=== PATIENT | female | born 1985 | race Caucasian/White ===

== ENCOUNTER → 2018-12-23 | Outpatient (CLI) | payer OTHER | END | disposition home or self-care (01) | LOC: LABWHC1 11:01 | PROVIDERS: ATTEND Nurse Practitioner Family | DX: Z01.818 Encounter for other preprocedural examination (principal) | CPT/HCPCS: 36415; 93005 ==

== ENCOUNTER → 2019-11-16 | Outpatient (CLI) | payer OTHER | END | disposition home or self-care (01) | LOC: EKGWHC1 16:14 | PROVIDERS: ATTEND Nurse Practitioner Family | DX: Z53.9 Procedure and treatment not carried out, unspecified reason (principal) | CPT/HCPCS: 93005 ==

== ENCOUNTER → 2020-06-13 | Outpatient (CLI) | payer OTHER | END | disposition home or self-care (01) | LOC: LABWHC1 14:57 | PROVIDERS: ATTEND Nurse Practitioner Family | DX: Z01.812 Encounter for preprocedural laboratory examination (principal); R00.1 Bradycardia, unspecified | CPT/HCPCS: 36415; 93005 ==

== ENCOUNTER 2020-09-15 11:40 | Emergency (ER) | payer OTHER ==
[2020-09-15 12:23] VITALS: BP 115/76; PULSE 68; RESP 16; TEMP 97.9
[2020-09-15 13:23] LABS: Appearance,Urine Clear (Clear); Basophils # (A) 0.1 k/uL (0-0.2); Basophils % (A) 1 %; Bilirubin,Urine Negative (Negative); Blood,Urine Negative (Negative); Color,Urine Yellow; Eosinophils # (A) 0.3 k/uL (0-0.7); Eosinophils % (A) 3 %; Glucose,Urine (UA) Negative (Negative); HCT 45.2 % (34.0-46.0); HGB 14.6 gm/dL (11.4-16.0); Ketones,Urine Negative (Negative); Leukocyte Esterase,Urine Negative (Negative); Lymphocytes # (A) 2.2 k/uL (1.0-4.8); Lymphocytes % (A) 24 %; MCH 31.7 pg (25.0-35.0); MCHC 32.4 g/dL (31.0-37.0); MCV 97.8 fL (80.0-100.0); Mean Platelet Volume 10.7; Monocytes # (A) 0.4 k/uL (0-1.0); Monocytes % (A) 4 %; Neutrophils # (A) 6.2 k/uL (1.3-7.7); Neutrophils % (A) 67 %; Nitrite,Urine Negative (Negative); PH, Urine 5.5 (5.0-8.0); Platelet Count 180 k/uL (150-450); Protein,Urine Negative (Negative); RBC 4.62 m/uL (3.80-5.40); RDW 13.4 % (11.5-15.5); Urobilinogen,Urine <2.0 mg/dL (<2.0); WBC 9.3 k/uL (3.8-10.6)
[2020-09-15 13:31] LABS: Albumin 4.2 g/dL (3.5-5.0); Calcium 9.6 mg/dL (8.4-10.2); Potassium 4.7 mmol/L (3.5-5.1); Total Bilirubin 0.2 mg/dL (0.2-1.3); Total Protein 6.9 g/dL (6.3-8.2)
--- NOTE | 2020-09-15 13:31 | ED ---
Extremity Problem HPI - General Chief complaint: Extremity Problem,Nontraumatic Stated complaint: Lower Extremity Swelling Time Seen by Provider: 09/15/20 12:47 Source: patient Mode of arrival: wheelchair Limitations: no limitations - History of Present Illness Initial comments: 35-year-old female presents to the emergency department with a chief complaint of both legs. Patient reports there is been no trauma that she has noticed gradual swelling in bilateral lower extremities with intermittent sharp shooting pains. She denies any chest pain or shortness of breath. She denies any trauma to the legs. Denies any history of DVT or PE. Not currently on control. She does have history of fibromyalgia and states the pain sometimes resembles her fibromyalgia pain, however she denies any previous swelling. No recent hospitalizations or chemotherapy. - Related Data Home Medications Medication Instructions Recorded Confirmed Pnv,Calcium 72/Iron/Folic Acid 1 tab PO DAILY 03/24/15 03/24/15 [Pnv Plus Multivit Tab] Allergies Allergy/AdvReac Type Severity Reaction Status Date / Time amoxicillin trihydrate Allergy Nausea & Verified 09/15/20 12:23 [From Augmentin] Vomiting fexofenadine HCl Allergy Nausea & Verified 09/15/20 12:23 [From Aniyah] Vomiting potassium clavulanate Allergy Nausea & Verified 09/15/20 12:23 [From Augmentin] Vomiting Review of Systems ROS Statement: Those systems with pertinent positive or pertinent negative responses have been documented in the HPI. ROS Other: All systems not noted in ROS Statement are negative. Past Medical History Additional Past Medical History / Comment(s): migraines, anxiety, hypoglycemia. Obstetric history: First was a vaginal delivery at 38 weeks, 8#2oz. T his is her second and she only started care with me last week. I did get heart tones at 174 last week but yesterday when she presented for US there was not a heart beat. History of Any Multi-Drug Resistant Organisms: None Reported Past Surgical History: Orthopedic Surgery Additional Past Surgical History / Comment(s): right knee x2 in 2012, right ankle in 2004, lap appy 2013 Past Anesthesia/Blood Transfusion Reactions: No Reported Reaction Past Psychological History: Anxiety Smoking Status: Current every day smoker Past Alcohol Use History: None Reported Past Drug Use History: None Reported - Past Family History Father Family Medical History: No Reported History General Exam Limitations: no limitations General appearance: alert, in no apparent distress, obese Head exam: Present: atraumatic, normocephalic Eye exam: Present: normal appearance, PERRL, EOMI Pupils: Present: normal accommodation ENT exam: Present: normal exam, mucous membranes moist Neck exam: Present: normal inspection, full ROM. Absent: tenderness Respiratory exam: Present: normal lung sounds bilaterally. Absent: respiratory distress, wheezes, rales, rhonchi, stridor, chest wall tenderness Cardiovascular Exam: Present: regular rate, normal rhythm, normal heart sounds. Absent: systolic murmur Extremities exam: Present: normal inspection, full ROM, normal capillary refill. Absent: tenderness, pedal edema, joint swelling Back exam: Present: normal inspection, full ROM. Absent: tenderness, CVA tenderness (R), CVA tenderness (L) Neurological exam: Present: alert, oriented X3 Psychiatric exam: Present: normal affect, normal mood Skin exam: Present: warm, dry, intact, normal color Course Vital Signs 09/15/20 12:19 Temperature 97.9 F Pulse Rate 68 Respiratory 16 Rate Blood Pressure 115/76 O2 Sat by Pulse 98 Oximetry Medical Decision Making - Medical Decision Making 35-year-old female presents to the emergency department with a chief complaint of leg swelling. On Physical examination, no pitting edema. However, she does have bilateral calf tenderness. She is otherwise neurovascularly intact. Bilateral lower extremity ultrasound is unremarkable. Laboratory work was obtained to rule out potentially renal cause of her symptoms. No acute findings. Patient will be discharged and outpatient follow-up with primary care. Advised to keep her legs elevated. Return parameters were thoroughly discussed the patient was attending agreeable. Case discussed with Dr. Villagran. - Lab Data Result diagrams: 09/15/20 13:09 09/15/20 13:09 Lab Results 09/15/20 09/15/20 09/15/20 Range/Units 13:09 13:09 13:09 WBC 9.3 (3.8-10.6) k/uL RBC 4.62 (3.80-5.40) m/uL Hgb 14.6 (11.4-16.0) gm/dL Hct 45.2 (34.0-46.0) % MCV 97.8 (80.0-100.0) fL MCH 31.7 (25.0-35.0) pg MCHC 32.4 (31.0-37.0) g/dL RDW 13.4 (11.5-15.5) % Plt Count 180 (150-450) k/uL MPV 10.7 Neutrophils % 67 % Lymphocytes % 24 % Monocytes % 4 % Eosinophils % 3 % Basophils % 1 % Neutrophils # 6.2 (1.3-7.7) k/uL Lymphocytes # 2.2 (1.0-4.8) k/uL Monocytes # 0.4 (0-1.0) k/uL Eosinophils # 0.3 (0-0.7) k/uL Basophils # 0.1 (0-0.2) k/uL Sodium 140 (137-145) mmol/L Potassium 4.7 (3.5-5.1) mmol/L Chloride 110 H (98-107) mmol/L Carbon Dioxide 21 L (22-30) mmol/L Anion Gap 9 mmol/L BUN 12 (7-17) mg/dL Creatinine 0.94 (0.52-1.04) mg/dL Est GFR (CKD-EPI)AfAm 90 (>60 ml/min/1.73 sqM) Est GFR (CKD-EPI)NonAf 78 (>60 ml/min/1.73 sqM) Glucose 94 (74-99) mg/dL Calcium 9.6 (8.4-10.2) mg/dL Total Bilirubin 0.2 (0.2-1.3) mg/dL AST 46 H (14-36) U/L ALT 58 H (4-34) U/L Alkaline Phosphatase 105 (38-126) U/L Total Protein 6.9 (6.3-8.2) g/dL Albumin 4.2 (3.5-5.0) g/dL Urine Color Yellow Urine Appearance Clear (Clear) Urine pH 5.5 (5.0-8.0) Ur Specific [place] 1.010 (1.001-1.035) Urine Protein Negative (Negative) Urine Glucose (UA) Negative (Negative) Urine Ketones Negative (Negative) Urine Blood Negative (Negative) Urine Nitrite Negative (Negative) Urine Bilirubin Negative (Negative) Urine Urobilinogen <2.0 (<2.0) mg/dL Ur Leukocyte Esterase Negative (Negative) Disposition Clinical Impression: Edema of lower extremity Disposition: HOME SELF-CARE Condition: Stable Instructions (If sedation given, give patient instructions): Leg Edema (ED) Additional Instructions: Please return to the Emergency Department if symptoms worsen or any other concerns. Is patient prescribed a controlled substance at d/c from ED?: No Referrals: Scar Rush DO [Primary Care Provider] - 1-2 days Time of Disposition: 14:17
--- NOTE | 2020-09-15 13:53 | US ---
EXAMINATION TYPE: US venous doppler duplex LE DATE OF EXAM: 09/15/2020 1:47 PM COMPARISON: NONE CLINICAL HISTORY: Rule out DVT. Pain and swelling SIDE PERFORMED: Bilateral TECHNIQUE: The lower extremity deep venous system is examined utilizing real time linear array sonog claudio with graded compression, doppler sonography and color-flow sonography. VESSELS IMAGED: Common Femoral Vein Deep Femoral Vein Greater Saphenous Vein * Femoral Vein Popliteal Vein Small Saphenous Vein * Proximal Calf Veins (* superficial vessels) Right Leg: Negative for DVT Left Leg: Negative for DVT IMPRESSION: Grayscale, color doppler, spectral doppler imaging performed of the deep veins of the lo wer extremities. There is normal flow, compressibility, vascular waveforms.
== END 2020-09-15 14:32 | disposition home or self-care (01) ==
LOC: EC 11:40
DX: R60.0 Localized edema (principal); F17.200 Nicotine dependence, unspecified, uncomplicated; Z88.8 Allergy status to other drugs, medicaments and biological substances; Z88.0 Allergy status to penicillin
CPT/HCPCS: 36415; 80053; 81003; 85025; 93970; 99284

== ENCOUNTER → 2020-12-21 | Outpatient (CLI) | payer OTHER | END | disposition home or self-care (01) | LOC: LABWHC1 12:13 | PROVIDERS: ATTEND Nurse Practitioner Family | DX: Z01.818 Encounter for other preprocedural examination (principal) | CPT/HCPCS: 36415; 93005 ==

== ENCOUNTER 2021-01-25 08:30 | Emergency (ER) | payer OTHER ==
[2021-01-25] MEDS ORDERED: DICYCLOMINE 10 MG/ML 2 ML AMP IM STA (08:54)
[2021-01-25] MEDS ORDERED: SODIUM CHLORIDE 0.9% 1,000 ML IV STA ×2 (08:54)
[2021-01-25] MEDS ORDERED: PANTOPRAZOLE 40 MG/10 ML VIAL IVP STA (08:54)
[2021-01-25] MEDS ORDERED: ONDANSETRON 4 MG/2 ML VIAL IVP STA (08:54)
[2021-01-25] MEDS ORDERED: ACETAMINOPHEN TAB 500 MG TAB PO STA (08:55)
--- NOTE | 2021-01-25 08:58 | ED ---
General Adult HPI - General Chief complaint: Nausea/Vomiting/Diarrhea Stated complaint: Nausea Time Seen by Provider: 01/25/21 08:48 Source: patient, RN notes reviewed Mode of arrival: ambulatory Limitations: no limitations - History of Present Illness Initial comments: Patient is a pleasant 35-year-old female presenting to the emergency Department with nausea and abdominal discomfort. Onset of symptoms was 3 or 4 days ago. Patient has decreased appetite. Patient has had some dry heaves. Patient has some abdominal discomfort. Patient does feel warm and cold however no fevers at home. Patient had a couple episodes of diarrhea. - Related Data Home Medications Medication Instructions Recorded Confirmed Pnv,Calcium 72/Iron/Folic Acid 1 tab PO DAILY 03/24/15 03/24/15 [Pnv Plus Multivit Tab] Previous Rx's Medication Instructions Recorded Dicyclomine [Bentyl] 20 mg PO QID PRN #12 tablet 01/25/21 Allergies Allergy/AdvReac Type Severity Reaction Status Date / Time amoxicillin trihydrate Allergy Nausea & Verified 01/25/21 08:45 [From Augmentin] Vomiting fexofenadine HCl Allergy Nausea & Verified 01/25/21 08:45 [From Aniyah] Vomiting potassium clavulanate Allergy Nausea & Verified 01/25/21 08:45 [From Augmentin] Vomiting Review of Systems ROS Statement: Those systems with pertinent positive or pertinent negative responses have been documented in the HPI. ROS Other: All systems not noted in ROS Statement are negative. Constitutional: Denies: fever Eyes: Denies: eye pain ENT: Denies: ear pain Respiratory: Denies: cough, dyspnea Cardiovascular: Denies: chest pain Endocrine: Denies: fatigue Gastrointestinal: Reports: as per HPI, abdominal pain, nausea, vomiting, diarrhea Genitourinary: Denies: urgency, dysuria, frequency Musculoskeletal: Denies: back pain Skin: Denies: rash Neurological: Denies: weakness Past Medical History Additional Past Medical History / Comment(s): migraines, anxiety, hypoglycemia. Obstetric history: First was a vaginal delivery at 38 weeks, 8#2oz. This is her second and she only started care with me last week. I did get heart tones at 174 last week but yesterday when she presented for US there was not a heart beat. History of Any Multi-Drug Resistant Organisms: None Reported Past Surgical History: Orthopedic Surgery Additional Past Surgical History / Comment(s): right knee x2 in 2013, right ankle in 2004, lap appy 2013 Past Anesthesia/Blood Transfusion Reactions: No Reported Reaction Past Psychological History: Anxiety Smoking Status: Current every day smoker Past Alcohol Use History: None Reported Past Drug Use History: None Reported - Past Family History Father Family Medical History: No Reported History General Exam Limitations: no limitations General appearance: alert, in no apparent distress Head exam: Present: normocephalic Eye exam: Present: normal appearance Respiratory exam: Present: normal lung sounds bilaterally Cardiovascular Exam: Present: tachycardia Expanded Peripheral pulses: 2+: Dorsalis Pedis (R), Dorsalis Pedis (L) GI/Abdominal exam: Present: soft, tenderness (Mild tenderness suprapubic and right lower quadrant). Absent: distended Extremities exam: Present: normal inspection. Absent: pedal edema, calf tenderness Neurological exam: Present: alert Psychiatric exam: Present: normal affect, normal mood Skin exam: Present: normal color Course Vital Signs 01/25/21 01/25/21 08:42 10:50 Temperature 99.0 F Pulse Rate 122 H 87 Respiratory 19 20 Rate Blood Pressure 117/83 113/79 O2 Sat by Pulse 95 100 Oximetry Medical Decision Making - Medical Decision Making Patient reevaluated and resting comfortably in bed. Abdomen soft and nontender. Patient and family updated on results and need for follow-up. - Lab Data Result diagrams: 01/25/21 09:23 01/25/21 09:23 Lab Results 01/25/21 01/25/21 01/25/21 Range/Units 09:23 09:23 09:23 WBC 8.7 (3.8-10.6) k/uL RBC 4.45 (3.80-5.40) m/uL Hgb 14.5 (11.4-16.0) gm/dL Hct 42.9 (34.0-46.0) % MCV 96.5 (80.0-100.0) fL MCH 32.7 (25.0-35.0) pg MCHC 33.9 (31.0-37.0) g/dL RDW 13.0 (11.5-15.5) % Plt Count 172 (150-450) k/uL MPV 10.4 Neutrophils % 71 % Lymphocytes % 20 % Monocytes % 7 % Eosinophils % 1 % Basophils % 0 % Neutrophils # 6.1 (1.3-7.7) k/uL Lymphocytes # 1.8 (1.0-4.8) k/uL Monocytes # 0.6 (0-1.0) k/uL Eosinophils # 0.1 (0-0.7) k/uL Basophils # 0.0 (0-0.2) k/uL PT 10.5 (9.0-12.0) sec INR 1.0 (<1.2) APTT 23.3 (22.0-30.0) sec Sodium (137-145) mmol/L Potassium (3.5-5.1) mmol/L Chloride (98-107) mmol/L Carbon Dioxide (22-30) mmol/L Anion Gap mmol/L BUN (7-17) mg/dL Creatinine (0.52-1.04) mg/dL Est GFR (CKD-EPI)AfAm (>60 ml/min/1.73 sqM) Est GFR (CKD-EPI)NonAf (>60 ml/min/1.73 sqM) Glucose (74-99) mg/dL Calcium (8.4-10.2) mg/dL Total Bilirubin (0.2-1.3) mg/dL AST (14-36) U/L ALT (4-34) U/L Alkaline Phosphatase (38-126) U/L Total Protein (6.3-8.2) g/dL Albumin (3.5-5.0) g/dL Amylase (30-110) U/L Lipase (23-300) U/L Urine Color Dark Yellow Urine Appearance Cloudy H (Clear) Urine pH 6.0 (5.0-8.0) Ur Specific [place] 1.034 (1.001-1.035) Urine Protein 1+ H (Negative) Urine Glucose (UA) Negative (Negative) Urine Ketones Trace H (Negative) Urine Blood Negative (Negative) Urine Nitrite Negative (Negative) Urine Bilirubin 1+ H (Negative) Urine Urobilinogen 8.0 (<2.0) mg/dL Ur Leukocyte Esterase Negative (Negative) Urine RBC <1 (0-5) /hpf Urine WBC 4 (0-5) /hpf Ur Squamous Epith Cells 3 (0-4) /hpf Urine Mucus Many H (None) /hpf Coronavirus (PCR) (Not Detectd) 01/25/21 01/25/21 Range/Units 09:23 09:23 WBC (3.8-10.6) k/uL RBC (3.80-5.40) m/uL Hgb (11.4-16.0) gm/dL Hct (34.0-46.0) % MCV (80.0-100.0) fL MCH (25.0-35.0) pg MCHC (31.0-37.0) g/dL RDW (11.5-15.5) % Plt Count (150-450) k/uL MPV Neutrophils % % Lymphocytes % % Monocytes % % Eosinophils % % Basophils % % Neutrophils # (1.3-7.7) k/uL Lymphocytes # (1.0-4.8) k/uL Monocytes # (0-1.0) k/uL Eosinophils # (0-0.7) k/uL Basophils # (0-0.2) k/uL PT (9.0-12.0) sec INR (<1.2) APTT (22.0-30.0) sec Sodium 136 L (137-145) mmol/L Potassium 3.3 L (3.5-5.1) mmol/L Chloride 107 (98-107) mmol/L Carbon Dioxide 20 L (22-30) mmol/L Anion Gap 9 mmol/L BUN 12 (7-17) mg/dL Creatinine 0.84 (0.52-1.04) mg/dL Est GFR (CKD-EPI)AfAm >90 (>60 ml/min/1.73 sqM) Est GFR (CKD-EPI)NonAf 89 (>60 ml/min/1.73 sqM) Glucose 107 H (74-99) mg/dL Calcium 9.7 (8.4-10.2) mg/dL Total Bilirubin 0.9 (0.2-1.3) mg/dL AST 28 (14-36) U/L ALT 46 H (4-34) U/L Alkaline Phosphatase 112 (38-126) U/L Total Protein 7.1 (6.3-8.2) g/dL Albumin 4.1 (3.5-5.0) g/dL Amylase 89 (30-110) U/L Lipase 144 (23-300) U/L Urine Color Urine Appearance (Clear) Urine pH (5.0-8.0) Ur Specific [place] (1.001-1.035) Urine Protein (Negative) Urine Glucose (UA) (Negative) Urine Ketones (Negative) Urine Blood (Negative) Urine Nitrite (Negative) Urine Bilirubin (Negative) Urine Urobilinogen (<2.0) mg/dL Ur Leukocyte Esterase (Negative) Urine RBC (0-5) /hpf Urine WBC (0-5) /hpf Ur Squamous Epith Cells (0-4) /hpf Urine Mucus (None) /hpf Coronavirus (PCR) Not Detected (Not Detectd) - Radiology Data Radiology results: report reviewed (CT abdomen pelvis shows no inflammatory process. Fullness left ovary and small follicular cyst.) Disposition Clinical Impression: Vomiting, Abdominal pain Disposition: HOME SELF-CARE Condition: Stable Instructions (If sedation given, give patient instructions): Acute Nausea and V omiting (ED), Abdominal Pain (ED), Acute Diarrhea (ED) Additional Instructions: Please do follow-up with primary care physician in the next day or 2 for recheck. Return for increased pain, vomiting, not tolerating fluids, worsening or changing symptoms or other concerns. Prescription has been sent to pharmacy. Prescriptions: Dicyclomine [Bentyl] 20 mg PO QID PRN #12 tablet PRN Reason: Pain Is patient prescribed a controlled substance at d/c from ED?: No Referrals: Scar Rush DO [Primary Care Provider] - 1-2 days Time of Disposition: 11:10
[2021-01-25 09:43] LABS: Basophils % (A) 0 %; Eosinophils # (A) 0.1 k/uL (0-0.7); Eosinophils % (A) 1 %; HCT 42.9 % (34.0-46.0); HGB 14.5 gm/dL (11.4-16.0); Lymphocytes # (A) 1.8 k/uL (1.0-4.8); Lymphocytes % (A) 20 %; MCH 32.7 pg (25.0-35.0); MCHC 33.9 g/dL (31.0-37.0); MCV 96.5 fL (80.0-100.0); Mean Platelet Volume 10.4; Monocytes # (A) 0.6 k/uL (0-1.0); Monocytes % (A) 7 %; Neutrophils # (A) 6.1 k/uL (1.3-7.7); Neutrophils % (A) 71 %; Platelet Count 172 k/uL (150-450); RBC 4.45 m/uL (3.80-5.40); WBC 8.7 k/uL (3.8-10.6)
[2021-01-25 09:51] LABS: ALT 46 U/L (4-34); AST 28 U/L (14-36); African American GFR (CKD) >90 (>60 ml/min/1.73 sqM); Albumin 4.1 g/dL (3.5-5.0); Alkaline Phosphatase 112 U/L (38-126); Amylase 89 U/L (30-110); Anion Gap 9 mmol/L; Blood Urea Nitrogen 12 mg/dL (7-17); Calcium 9.7 mg/dL (8.4-10.2); Carbon Dioxide 20 mmol/L (22-30); Chloride 107 mmol/L (98-107); Glucose 107 mg/dL (74-99); Lipase 144 U/L (23-300); Non-African American GFR(CKD) 89 (>60 ml/min/1.73 sqM); Potassium 3.3 mmol/L (3.5-5.1); Sodium 136 mmol/L (137-145); Total Bilirubin 0.9 mg/dL (0.2-1.3); Total Protein 7.1 g/dL (6.3-8.2)
[2021-01-25 09:59] LABS: Appearance,Urine Cloudy (Clear); Bilirubin,Urine 1+ (Negative); Blood,Urine Negative (Negative); Color,Urine Dark Yellow; Glucose,Urine (UA) Negative (Negative); Ketones,Urine Trace (Negative); Leukocyte Esterase,Urine Negative (Negative); Mucus,Urine Many /hpf; Nitrite,Urine Negative (Negative); Protein,Urine 1+ (Negative); RBC,Urine <1 /hpf (0-5); Specific Gravity,Urine 1.034 (1.001-1.035); Squamous Epithelial Cell,Urine 3 /hpf (0-4); WBC,Urine 4 /hpf (0-5)
[2021-01-25 10:12] LABS: Partial Thromboplastin Time 23.3 sec (22.0-30.0); Prothrombin Time 10.5 sec (9.0-12.0)
--- NOTE | 2021-01-25 10:26 | CT ---
EXAMINATION TYPE: CT abdomen pelvis w con DATE OF EXAM: 01/25/2021 COMPARISON: None HISTORY: Generalized pain with N/V/D for [address] DLP: 1143.5 mGycm CONTRAST: CT scan of the abdomen and pelvis is performed without Oral Contrast and with IV Contrast, patient in jected with 100 mL of Isovue 300. FINDINGS: LUNG BASES-: No visible nodule. No infiltrate. LIVER/GB: No calcified gallstones. No space occupying hepatic lesion. Biliary tree is of normal ca liber. PANCREAS: No inflammation. No distinct mass. SPLEEN: No splenic enlargement. No lesion seen. ADRENALS: No nodule. No thickening. KIDNEYS/BLADDER: No hydronephrosis. No nephrolithiasis. No distinct renal mass. Urinary bladder g rossly unremarkable. BOWEL: There appear to be appendectomy changes. Normal bowel caliber. No inflammation. GENITAL ORGANS: High riding ovaries are noted. The left ovary demonstrates mild fullness and follicul ar cysts measuring 1.1 cm. The uterus appears atrophic. LYMPH NODES: No greater than 1cm abdominal or pelvic lymph nodes are appreciated. AORTA: No significant abnormality. OSSEOUS STRUCTURES: No significant abnormality is seen. OTHER: No significant additional abnormality is seen. IMPRESSION: 1. No acute inflammatory process seen. Fullness of the left ovary and small left ovarian follicular c yst.
[2021-01-25 10:54] VITALS: BP 113/79; PULSE 87; RESP 20
[2021-01-25 11:19] VITALS: TEMP 98.1
== END 2021-01-25 11:18 | disposition home or self-care (01) ==
LOC: EC 08:30
DX: R10.31 Right lower quadrant pain (principal); R11.2 Nausea with vomiting, unspecified; F17.200 Nicotine dependence, unspecified, uncomplicated; Z88.0 Allergy status to penicillin; Z88.8 Allergy status to other drugs, medicaments and biological substances; Z20.822 Contact with and (suspected) exposure to COVID-19
CPT/HCPCS: 36415; 74177; 80053; 81001; 82150; 83690; 85025; 85610; 85730; 87635; 96361; 96372; 96374; 96375; 99284

== ENCOUNTER 2021-05-02 07:41 | Day surgery (SDC) | payer OTHER ==
[2021-04-26 10:17] VITALS: BMI 34.5
[~2021-05-02 07:41] MED LIST: ACETAMINOPHEN TAB 500 MG TAB PO PRN; DEXAMETHASONE SOD PHOSPHATE 4 MG/ML 1 ML VIAL IV ONE; HEPARIN SODIUM,PORCINE/PF 5,000 UNIT/0.5 ML SYRINGE SQ PRN; HYDROmorphone 0.5 MG/0.5 ML SYRINGE IVP PRN; LACTATED RINGERS 1,000 ML IV SCH; LIDOCAINE 1% (10MG/ML) FOR IV START INTRADERMA PRN; ONDANSETRON 4 MG/2 ML VIAL IVP ONE
[2021-05-02 08:22] LABS: Glucose,Whole Blood 99 mg/dL (75-99)
[2021-05-02] MEDS ORDERED: SCOPOLAMINE 1.5MG/72HR PATCH TRANSDERM ONE (08:26)
--- NOTE | 2021-05-02 10:56 | P.GSHP ---
History of Present Illness H&P Date: 05/02/21 Chief Complaint: Right upper quadrant pain This a 35-year-old female who presents today for laparoscopic cholecystectomy. Patient's had complaints of right upper quadrant pain. Her recent HIDA scan shows nonvisualization of the gallbladder. Consistent with cholecystitis Past Medical History Past Medical History: Fibromyalgia Additional Past Medical History / Comment(s): severe nausea,abdominal pain and c ramping, hx migraines, hypoglycemia History of Any Multi-Drug Resistant Organisms: None Reported Past Surgical History: Appendectomy, Hysterectomy, Orthopedic Surgery Additional Past Surgical History / Comment(s): right knee x2, right ankle Past Anesthesia/Blood Transfusion Reactions: No Reported Reaction Past Psychological History: Anxiety Smoking Status: Current every day smoker Past Alcohol Use History: None Reported Past Drug Use History: None Reported - Past Family History Father Family Medical History: No Reported History Medications and Allergies Home Medications Medication Instructions Recorded Confirmed Type Baclofen [Lioresal] 20 mg PO BID PRN 04/10/21 04/26/21 History Dicyclomine [Bentyl] 20 mg PO TID PRN 04/10/21 04/26/21 History HYDROcodone/APAP 7.5-325MG [[place] 1 tab PO BID PRN 04/10/21 04/26/21 History 7.5-325] Omeprazole 20 mg PO QAM 04/10/21 05/02/21 History Pregabalin 150 mg PO BID 04/10/21 04/26/21 History Propranolol HCl [Propranolol HCl 160 mg PO QAM 04/10/21 04/26/21 History ER] Sucralfate [Carafate] 1 gm PO TID 04/10/21 04/26/21 History Topiramate [Trokendi Xr] 100 mg PO QAM 04/10/21 04/26/21 History Allergies Allergy/AdvReac Type Severity Reaction Status Date / Time amoxicillin trihydrate Allergy Nausea & Verified 05/02/21 07:57 [From Augmentin] Vomiting fexofenadine HCl Allergy Nausea & Verified 05/02/21 07:57 [From Aniyah] Vomiting potassium clavulanate Allergy Nausea & Verified 05/02/21 07:57 [From Augmentin] Vomiting Surgical - Exam Vital Signs Temp Pulse Resp BP Pulse Ox 97 F L 110 H 18 118/80 96 05/02/21 08:05 05/02/21 08:05 05/02/21 08:05 05/02/21 08:05 05/02/21 08:05 - General well developed, well nourished, no distress - Eyes PERRL - ENT normal pinna - Neck no masses - Respiratory normal expansion - Cardiovascular Rhythm: regular - Abdomen Mild right quadrant tenderness Abdomen: soft Results - Labs 05/02/21 09:40 Diabetes panel 05/02/21 Range/Units 09:40 Potassium 3.7 (3.5-5.1) mmol/L Pituitary panel 05/02/21 Range/Units 09:40 Potassium 3.7 (3.5-5.1) mmol/L Adrenal panel 05/02/21 Range/Units 09:40 Potassium 3.7 (3.5-5.1) mmol/L Assessment and Plan Assessment: Cholecystitis. We'll perform laparoscopic cholecystectomy
[2021-05-02] MEDS ORDERED: SUCCINYLCHOLINE CHLORIDE 100 MG/5 ML SYR IV ONE (11:14)
[2021-05-02] MEDS ORDERED: PROPOFOL 10 MG/ML 20 ML VIAL IV ONE (11:14)
[2021-05-02] MEDS ORDERED: KETOROLAC 15 MG/ML 1 ML VIAL ONE (11:14)
[2021-05-02] MEDS ORDERED: fentaNYL (PF) 50 MCG/ML 2 ML AMP ONE (11:14)
[2021-05-02] MEDS ORDERED: LIDOCAINE 1% INJ 10MG/ML (20 ML MDV) ONE (11:14)
[2021-05-02] MEDS ORDERED: ROCURONIUM 10 MG/ML (5 ML VIAL) IV ONE (11:14)
[2021-05-02] MEDS ORDERED: NEOSTIGMINE 1 MG/ML 10 ML VIAL ONE (11:14)
[2021-05-02] MEDS ORDERED: MIDAZOLAM 2 MG/2 ML VIAL ONE (11:14)
[2021-05-02] MEDS ORDERED: GLYCOPYRROLATE 0.2 MG/ML 2 ML VIAL ONE (11:14)
[2021-05-02] MEDS ORDERED: BUPIVACAIN-EPI 0.25%-1:200,000 30 ML VIAL SQ ONE (11:36)
[2021-05-02 12:12] VITALS: TEMP 98.7
[2021-05-02 12:18] VITALS: RESP 16
--- NOTE | 2021-05-02 12:27 | P.OP ---
Date of Procedure: 05/02/21 Preoperative Diagnosis: Cholecystitis Postoperative Diagnosis: Cholecystitis Procedure(s) Performed: Laparoscopic cholecystectomy Anesthesia: DRU Surgeon: Joseph Bird Estimated Blood Loss (ml): 5 Pathology: other (Gallbladder) Condition: stable Disposition: PACU Description of Procedure: The patient was placed on the operating table. The patient received a general endotracheal tube anesthesia. The patients abdomen was prepped and draped in the usual sterile fashion. Through an infraumbilical stab incision, the fascia of the anterior abdominal wall was grasped with a pair of Kochers and then the Veress needle was placed in the peritoneal cavity. Position of the Veress needle was confirmed with positive drop test. The abdomen was then insufflated. After adequate insufflation, the 10 mm trocar was placed in the peritoneal cavity. Following this the laparoscope was placed in the peritoneal cavity. The patient was placed in the head-up, right side up position and then a 5 mm trocar was placed in the right lateral and right subcostal position under direct visualization. A 8 mm trocar was placed in the epigastric position. The gallbladder was grasped in the fundus and infundibulum. Traction on the gallbladder was placed in the lateral and the cephalad positions. The triangle of Calot was visualized.. The cystic duct was bluntly dissected until the union of the cystic duct and common bile duct was seen. A critical view of safety was achieved. The cystic duct was then divided and sealed with the Harmonic scissors. A PDS Endoloop was then placed throughout the cystic duct stump. The cystic artery divided and sealed with the Harmonic scissors. The gallbladder was then removed from the liver bed using Harmonic scissors. The gallbladder was then extracted through the epigastric port site. Operative field was checked for any bleeding spots and Harmonic scissors was used to coagulate the liver bed. The abdomen was irrigated. The trocars were removed. The skin was closed using interrupted 3-0 Vicryl suture. Dermabond dressing were applied. The patient tolerated the procedure well.
[2021-05-02 13:07] VITALS: BP 102/67; PULSE 73
== END 2021-05-02 13:25 | disposition home or self-care (01) ==
LOC: OR 07:41
PROVIDERS: ATTEND Surgery
DX: K80.10 Calculus of gallbladder with chronic cholecystitis without obstruction (principal); M79.7 Fibromyalgia; G43.909 Migraine, unspecified, not intractable, without status migrainosus; E16.2 Hypoglycemia, unspecified; Z90.710 Acquired absence of both cervix and uterus; Z90.49 Acquired absence of other specified parts of digestive tract; Z98.890 Other specified postprocedural states; F17.210 Nicotine dependence, cigarettes, uncomplicated; Z79.899 Other long term (current) drug therapy; Z88.0 Allergy status to penicillin; Z88.8 Allergy status to other drugs, medicaments and biological substances; F41.9 Anxiety disorder, unspecified
CPT/HCPCS: 88304; 84132; 47562; J2250; J1100; J2710; J0690; J2405; J2001; J3010; J1885; J0330; J2704; J1170; J1644

== ENCOUNTER 2021-06-14 09:48 | Day surgery (SDC) | payer OTHER ==
[2021-06-13 09:14] VITALS: BMI 31.6
[~2021-06-14 09:48] MED LIST changes: -ACETAMINOPHEN TAB 500 MG TAB PO PRN; -DEXAMETHASONE SOD PHOSPHATE 4 MG/ML 1 ML VIAL IV ONE; -HEPARIN SODIUM,PORCINE/PF 5,000 UNIT/0.5 ML SYRINGE SQ PRN; -HYDROmorphone 0.5 MG/0.5 ML SYRINGE IVP PRN; -LIDOCAINE 1% (10MG/ML) FOR IV START INTRADERMA PRN; -ONDANSETRON 4 MG/2 ML VIAL IVP ONE
[2021-06-14 10:22] VITALS: TEMP 97.6
[2021-06-14] MEDS ORDERED: ONDANSETRON 4 MG/2 ML VIAL ONE (10:24)
[2021-06-14 10:25] LABS: Glucose,Whole Blood 95 mg/dL (75-99)
[2021-06-14] MEDS ORDERED: ONDANSETRON 4 MG/2 ML VIAL IVP ONE (10:28)
--- NOTE | 2021-06-14 10:46 | P.GSHP ---
History of Present Illness H&P Date: 06/14/21 Chief Complaint: GI bleed Is a 28-year-old female referred from Dr. hunter. Patient points of rectal bleeding. Past Medical History Past Medical History: Fibromyalgia Additional Past Medical History / Comment(s): severe nausea,abdominal pain and cramping, hx migraines, hypoglycemia History of Any Multi-Drug Resistant Organisms: None Reported Past Surgical History: Appendectomy, Cholecystectomy, Hysterectomy, Orthopedic Surgery Additional Past Surgical History / Comment(s): right knee x2, right ankle, EGD Past Anesthesia/Blood Transfusion Reactions: No Reported Reaction Past Psychological History: Anxiety Additional Psychological History / Comment(s): not currently medicated Smoking Status: Current every day smoker Past Alcohol Use History: None Reported Additional Past Alcohol Use History / Comment(s): started smoking at age 14,1ppd Past Drug Use History: None Reported - Past Family History Father Family Medical History: No Reported History Medications and Allergies Home Medications Medication Instructions Recorded Confirmed Type Baclofen [Lioresal] 20 mg PO BID PRN 04/10/21 06/13/21 History Dicyclomine [Bentyl] 20 mg PO TID PRN 04/10/21 06/13/21 History HYDROcodone/APAP 7.5-325MG [[place] 1 tab PO BID PRN 04/10/21 06/13/21 History 7.5-325] Omeprazole 20 mg PO QAM 04/10/21 06/13/21 History Pregabalin 150 mg PO BID 04/10/21 06/13/21 History Sucralfate [Carafate] 1 gm PO TID 04/10/21 06/13/21 History Topiramate [Trokendi Xr] 100 mg PO QAM 04/10/21 06/13/21 History Propranolol HCl 80 mg PO DAILY 06/13/21 06/13/21 History Allergies Allergy/AdvReac Type Severity Reaction Status Date / Time amoxicillin trihydrate Allergy Nausea & Verified 06/13/21 09:07 [From Augmentin] Vomiting fexofenadine HCl Allergy Nausea & Verified 06/13/21 09:07 [From Aniyah] Vomiting potassium clavulanate Allergy Nausea & Verified 06/13/21 09:07 [From Augmentin] Vomiting Surgical - Exam Vital Signs Temp Pulse Resp BP Pulse Ox 97.6 F 84 20 109/69 95 06/14/21 10:21 06/14/21 10:21 06/14/21 10:21 06/14/21 10:21 06/14/21 10:21 - General well developed, well nourished, no distress - Eyes PERRL - ENT normal pinna, normal nares - Neck no masses - Respiratory normal expansion - Cardiovascular Rhythm: regular - Abdomen Abdomen: soft, non tender Assessment and Plan Assessment: GI bleed. We'll perform colonoscopy
[2021-06-14] MEDS ORDERED: PROPOFOL 10 MG/ML 20 ML VIAL IV ONE (10:49)
--- NOTE | 2021-06-14 11:04 | P.OP ---
Date of Procedure: 06/14/21 Preoperative Diagnosis: Diarrhea Rectal bleeding Postoperative Diagnosis: External hemorrhoids Procedure(s) Performed: Colonoscopy Anesthesia: MAC Surgeon: Joseph Bird Pathology: other (Rectal biopsy) Condition: stable Disposition: PACU Description of Procedure: The patient was placed on the endoscopy table in the lateral position. She received IV sedation. Digital rectal exam was performed which revealed external hemorrhoids. The flexible colonoscope was then placed patient anus passed throughout the entire colon. The ileocecal valve was visually is. The patient a very poor colon prep. There is a large amount liquid stool. Scope was withdrawn. The ascending colon, transverse colon and descending colon appeared normal. The sigmoid colon appeared normal. Scope was then brought back the rectum this appeared normal however due to her symptoms of diarrhea a random rectal biopsies performed. Scope was withdrawn. And there were minimal internal and external hemorrhoids seen. Scope withdrawn for patient. There was no evidence of any GI bleed. His presumed the patient had bleeding from external hemorrhoids.
[2021-06-14 11:09] VITALS: RESP 16
[2021-06-14 11:30] VITALS: BP 108/75; PULSE 67
== END 2021-06-14 11:45 | disposition home or self-care (01) ==
LOC: ORWHC2ENDO 09:48
PROVIDERS: ATTEND Surgery
DX: R19.7 Diarrhea, unspecified (principal); K64.4 Residual hemorrhoidal skin tags; M79.7 Fibromyalgia; G43.909 Migraine, unspecified, not intractable, without status migrainosus; E16.2 Hypoglycemia, unspecified; Z98.890 Other specified postprocedural states; Z90.49 Acquired absence of other specified parts of digestive tract; Z90.710 Acquired absence of both cervix and uterus; F41.9 Anxiety disorder, unspecified; F17.210 Nicotine dependence, cigarettes, uncomplicated; Z79.899 Other long term (current) drug therapy; Z88.0 Allergy status to penicillin; Z88.8 Allergy status to other drugs, medicaments and biological substances; G89.29 Other chronic pain
CPT/HCPCS: 88305; 45380; J2405; J2704

== ENCOUNTER → 2021-07-17 | Outpatient (CLI) | payer OTHER ==
[2021-07-17 23:38] LABS: ALT 52 U/L (8-44); AST 32 U/L (13-35); African American GFR (CKD) 129.1 (60.0-200.0); Albumin 4.2 g/dL (3.8-4.9); Albumin/Globulin Ratio 2.04 (1.60-3.17); Alkaline Phosphatase 121 U/L (41-126); BUN/Creat Ratio 11.14 Ratio (12.00-20.00); Blood Urea Nitrogen 7.5 mg/dL (9.0-27.0); C Reactive Protein <0.30 mg/dL (0.00-0.80); Calcium 9.4 mg/dL (8.7-10.3); Carbon Dioxide 20.1 mmol/L (20.0-27.5); Chloride 110 mmol/L (96-109); Globulin 2.1 g/dL (1.6-3.3); Glucose 78 mg/dL (70-110); Non-African American GFR(CKD) 111.3 (60.0-200.0); Potassium 3.7 mmol/L (3.5-5.5); Sodium 142 mmol/L (135-145); Total Protein 6.3 g/dL (6.2-8.2)
[2021-07-18 00:05] LABS: Basophils # (A) 0.03 X 10*3/uL (0.00-0.10); Basophils % (A) 0.4 %; Eosinophils # (A) 0.25 X 10*3/uL (0.04-0.35); Eosinophils % (A) 3.3 %; HGB 14.3 g/dL (12.0-15.0); Immature Grans, Automated 0.7 %; Lymphocytes # (A) 2.63 X 10*3/uL (0.90-5.00); Lymphocytes % (A) 34.6 %; MCH 32.8 pg (27.0-32.0); MCHC 32.5 g/dL (32.0-37.0); MCV 100.9 fL (80.0-97.0); Mean Platelet Volume 13.5 fL (9.5-12.2); Monocytes # (A) 0.51 X 10*3/uL (0.20-1.00); Monocytes % (A) 6.7 %; NRBC Per 100 WBC 0 /100 WBCS (0.0-0.0); Neutrophils # (A) 4.13 X 10*3/uL (1.80-7.70); Neutrophils % (A) 54.3 %; Platelet Count 167 X 10*3/uL (140-440); RBC 4.36 X 10*6/uL (4.10-5.20); RDW 13.5 % (11.5-14.5)
[2021-07-18 00:34] LABS: Erythrocyte Sedimentation Rate 11 mm/Hr (0-20)
[2021-07-18 04:10] LABS: Gliadin AB IgA, Deaminated NEGATIVE (NEGATIVE); Gliadin AB IgG, Deaminated NEGATIVE (NEGATIVE); Gliadin AB IgG, Unit <0.4 U/mL
== END | disposition home or self-care (01) ==
LOC: LABWHC1 13:49
PROVIDERS: ATTEND Nurse Practitioner Family
DX: Z01.818 Encounter for other preprocedural examination (principal); R19.4 Change in bowel habit
CPT/HCPCS: 36415; 80053; 83516; 85025; 85652; 86140; 93005

== ENCOUNTER → 2021-12-06 | Outpatient (CLI) | payer OTHER ==
[2021-12-07 01:27] LABS: African American GFR (CKD) 93.1 (60.0-200.0); Albumin/Globulin Ratio 2.05 (1.60-3.17); Anion Gap 11.1 mmol/L (10.00-18.00); BUN/Creat Ratio 9.78 Ratio (12.00-20.00); Blood Urea Nitrogen 8.9 mg/dL (9.0-27.0); Calcium 8.8 mg/dL (8.7-10.3); Globulin 1.9 g/dL (1.6-3.3); Non-African American GFR(CKD) 80.4 (60.0-200.0); Potassium 4.1 mmol/L (3.5-5.5); Total Bilirubin 0.3 mg/dL (0.30-1.20); Total Protein 5.9 g/dL (6.2-8.2)
== END | disposition home or self-care (01) ==
LOC: LABWHC1 15:00
PROVIDERS: ATTEND Internal Medicine Gastroenterology
DX: R19.4 Change in bowel habit (principal); R74.01 Elevation of levels of liver transaminase levels
CPT/HCPCS: 36415; 80053; 82656

== ENCOUNTER 2022-01-26 09:16 | Emergency (ER) | payer OTHER ==
[2022-01-26 09:20] VITALS: BP 95/75; PULSE 86; RESP 16; TEMP 98.5
[2022-01-26] MEDS ORDERED: ORPHENADRINE 30 MG/ML 2 ML VIAL IM STA (09:40)
[2022-01-26] MEDS ORDERED: DEXAMETHASONE SOD PHOSPHATE 10 MG/ML 1 ML VIAL IM STA (09:40)
[2022-01-26] MEDS ORDERED: KETOROLAC 15 MG/ML 1 ML VIAL IM STA (09:40)
--- NOTE | 2022-01-26 11:35 | ED ---
Back Pain HPI - General Chief Complaint: Back Pain/Injury Stated Complaint: Back pain Time Seen by Provider: 01/26/22 09:26 Source: patient Limitations: no limitations - History of Present Illness Initial Comments: Patient is a 36-year-old female presenting with chief complaint of back pain. Patient states that she fell on 01/17. She received x-rays that day and confirmed that there were no fractures. Patient states that due to her fibromyalgia she has been experiencing increased pain after this injury. Pain is located primarily in the neck and thoracic back. Minimal low back pain. No loss of bowel or bladder control or saddle paresthesia. No numbness or tingling. No loss of range of motion or weakness. No headache, vision or hearing changes, nausea, vomiting, chest pain, difficulty breathing, abdominal pain, dysuria, hematuria. - Related Data Home Medications Medication Instructions Recorded Confirmed Baclofen [Lioresal] 20 mg PO BID PRN 04/10/21 06/13/21 Dicyclomine [Bentyl] 20 mg PO TID PRN 04/10/21 06/13/21 HYDROcodone/APAP 7.5-325MG [[place] 1 tab PO BID PRN 04/10/21 06/13/21 7.5-325] Omeprazole 20 mg PO QAM 04/10/21 06/13/21 Pregabalin 150 mg PO BID 04/10/21 06/13/21 Sucralfate [Carafate] 1 gm PO TID 04/10/21 06/13/21 Topiramate [Trokendi Xr] 100 mg PO QAM 04/10/21 06/13/21 Propranolol HCl 80 mg PO DAILY 06/13/21 06/13/21 Previous Rx's Medication Instructions Recorded Ondansetron [Zofran] 4 mg PO Q8HR PRN #30 tab 06/14/21 Allergies Allergy/AdvReac Type Severity Reaction Status Date / Time amoxicillin trihydrate Allergy Nausea & Verified 01/26/22 09:18 [From Augmentin] Vomiting fexofenadine HCl Allergy Nausea & Verified 01/26/22 09:18 [From Aniyah] Vomiting potassium clavulanate Allergy Nausea & Verified 01/26/22 09:18 [From Augmentin] Vomiting Review of Systems ROS Statement: Those systems with pertinent positive or pertinent negative responses have been documented in the HPI. ROS Other: All systems not noted in ROS Statement are negative. Past Medical History Past Medical History: Fibromyalgia Additional Past Medical History / Comment(s): severe nausea,abdominal pain and cramping, hx migraines, hypoglycemia History of Any Multi-Drug Resistant Organisms: None Reported Past Surgical History: Appendectomy, Cholecystectomy, Hysterectomy, Orthopedic Surgery Additional Past Surgical History / Comment(s): right knee x2, right ankle, EGD Past Anesthesia/Blood Transfusion Reactions: No Reported Reaction Past Psychological History: Anxiety Smoking Status: Current every day smoker Past Alcohol Use History: None Reported Past Drug Use History: None Reported - Past Family History Father Family Medical History: No Reported History General Exam Limitations: no limitations General appearance: alert, in no apparent distress Head exam: Present: atraumatic, normocephalic, normal inspection Eye exam: Present: normal appearance, PERRL, EOMI. Absent: scleral icterus, conjunctival injection, periorbital swelling Neck exam: Present: normal inspection, tenderness, full ROM Respiratory exam: Present: normal lung sounds bilaterally. Absent: respiratory distress, wheezes, rales, rhonchi, stridor Cardiovascular Exam: Present: regular rate, normal rhythm, normal heart sounds. Absent: systolic murmur, diastolic murmur, rubs, gallop, clicks Extremities exam: Present: normal inspection, full ROM Back exam: Present: normal inspection, paraspinal tenderness. Absent: vertebral tenderness Neurological exam: Present: alert, oriented X3, CN II-XII intact Psychiatric exam: Present: normal affect, normal mood Skin exam: Present: warm, dry, intact, normal color. Absent: rash Course Vital Signs 01/26/22 01/26/22 09:18 12:15 Temperature 98.5 F 98.5 F Pulse Rate 86 86 Respiratory 16 16 Rate Blood Pressure 95/75 95/75 O2 Sat by Pulse 100 100 Oximetry Medical Decision Making - Medical Decision Making Patient is a 36-year-old female history fibromyalgia presenting with chief complaint of back pain. Patient had a fall a few days ago, states she has been experiencing increased back pain since then. On examination there is paraspinal muscle tenderness. She has full range of motion, denies any numbness, tingling, weakness. Patient previously received negative x-rays. She is given Norflex, Decadron, and Toradol. She reports improvement in the pain. Educated on supportive treatment at home. Follow-up with PCP. Report back to ER with any new or worsening symptoms. Discussed return parameters and answered all questions. Patient conveyed verbal understanding and agreed to the plan. I discussed this case in detail with my attending Dr. Boston. Disposition Clinical Impression: Mechanical back pain Disposition: HOME SELF-CARE Condition: Good Instructions (If sedation given, give patient instructions): Back Pain (ED) Additional Instructions: Follow-up with PCP. Report back to ER with any new or worsening symptoms. Take Motrin and Tylenol as needed for pain control. Is patient prescribed a controlled substance at d/c from ED?: No Referrals: Scar Rush DO [Primary Care Provider] - 1-2 days Time of Disposition: 11:35
== END 2022-01-26 12:15 | disposition home or self-care (01) ==
LOC: EC 09:16
DX: M54.50 Low back pain, unspecified (principal); M79.7 Fibromyalgia; F17.200 Nicotine dependence, unspecified, uncomplicated; Z88.0 Allergy status to penicillin; Z88.8 Allergy status to other drugs, medicaments and biological substances
CPT/HCPCS: 99283; 96372; J1100; J2360; J1885

== ENCOUNTER 2022-11-14 18:28 | Emergency (ER) | payer OTHER ==
[2022-11-14] MEDS ORDERED: KETOROLAC 15 MG/ML 1 ML VIAL IM STA (19:38)
--- NOTE | 2022-11-14 20:23 | ED ---
Upper Extremity HPI - General Chief Complaint: Extremity Injury, Upper Stated Complaint: RIGHT HAND PAIN Time Seen by Provider: 11/14/22 19:12 Source: patient Mode of arrival: ambulatory Limitations: no limitations - History of Present Illness Initial Comments: Patient is a 37-year-old female who presents to the emergency department for right hand pain. She noticed swelling and bruising to pinky side of her hand yesterday. She does not recall injury. She has mild pain increase when she moves her pinky. No numbness or tingling. No fever or chills. - Related Data Home Medications Medication Instructions Recorded Confirmed Baclofen [Lioresal] 20 mg PO BID PRN 04/10/21 06/13/21 Dicyclomine [Bentyl] 20 mg PO TID PRN 04/10/21 06/13/21 HYDROcodone/APAP 7.5-325MG [[place] 1 tab PO BID PRN 04/10/21 06/13/21 7.5-325] Omeprazole 20 mg PO QAM 04/10/21 06/13/21 Pregabalin 150 mg PO BID 04/10/21 06/13/21 Sucralfate [Carafate] 1 gm PO TID 04/10/21 06/13/21 Topiramate [Trokendi Xr] 100 mg PO QAM 04/10/21 06/13/21 Propranolol HCl 80 mg PO DAILY 06/13/21 06/13/21 Previous Rx's Medication Instructions Recorded Ondansetron [Zofran] 4 mg PO Q8HR PRN #30 tab 06/14/21 Ibuprofen [Motrin] 600 mg PO Q6HR PRN #30 tab 11/14/22 Allergies Allergy/AdvReac Type Severity Reaction Status Date / Time amoxicillin trihydrate Allergy Nausea & Verified 11/14/22 18:48 [From Augmentin] Vomiting fexofenadine HCl Allergy Nausea & Verified 11/14/22 18:48 [From Aniyah] Vomiting potassium clavulanate Allergy Nausea & Verified 11/14/22 18:48 [From Augmentin] Vomiting Review of Systems ROS Statement: Those systems with pertinent positive or pertinent negative responses have been documented in the HPI. ROS Other: All systems not noted in ROS Statement are negative. Past Medical History Past Medical History: Fibromyalgia Additional Past Medical History / Comment(s): severe nausea,abdominal pain and cramping, hx migraines, hypoglycemia History of Any Multi-Drug Resistant Organisms: None Reported Past Surgical History: Appendectomy, Cholecystectomy, Hysterectomy, Orthopedic Surgery Additional Past Surgical History / Comment(s): right knee x2, right ankle, EGD Past Anesthesia/Blood Transfusion Reactions: No Reported Reaction Past Psychological History: Anxiety Smoking Status: Current every day smoker Past Alcohol Use History: None Reported Past Drug Use History: None Reported - Past Family History Father Family Medical History: No Reported History General Exam Limitations: no limitations General appearance: alert Respiratory exam: Present: normal lung sounds bilaterally. Absent: respiratory distress, wheezes, rales, rhonchi, stridor Cardiovascular Exam: Present: regular rate, normal rhythm, normal heart sounds. Absent: systolic murmur, diastolic murmur, rubs, gallop, clicks Right Forearm Wrist exam: Present: normal inspection, full ROM. Absent: tenderness, swelling, tenderness over anatomical snuff box Hand Wrist exam: Present: full ROM, swelling (minimal distal 4th and fifth metacarpals with mild ecchymosis). Absent: laceration, deformity, crepitus, dislocation, erythema Neurological exam: Present: alert Psychiatric exam: Present: normal affect, normal mood Skin exam: Present: warm, dry, intact, normal color. Absent: rash Course Vital Signs 11/14/22 11/14/22 18:45 20:56 Temperature 98.2 F 98.8 F Pulse Rate 98 69 Respiratory 20 16 Rate Blood Pressure 99/69 103/71 O2 Sat by Pulse 98 100 Oximetry Procedures - Orthopedic Splinting/Casting Injury #1 Side: right Upper Extremity Injury Location: hand Upper Extremity Immobilizer: Siva wrap Medical Decision Making - Medical Decision Making Was pt. sent in by a medical professional or institution (, PA, VESSEL ENGINEER, urgent care, hospital, or alf...) When possible be specific @ -No Did you speak to anyone other than the patient for history (EMS, parent, family, police, friend...)? What history was obtained from this source @ -No Did you review nursing and triage notes (agree or disagree)? Why? @ -I reviewed and agree with nursing and triage notes Were old charts reviewed (outside hosp., previous admission, EMS record, old EKG, old radiological studies, urgent care reports/EKG's, alf records)? Report findings @ -No old charts were reviewed Differential Diagnosis (chest pain, altered mental status, abdominal pain women, abdominal pain men, vaginal bleeding, weakness, fever, dyspnea, syncope, headache, dizziness, GI bleed, back pain, seizure, CVA, palpatations, mental health)? @ -hand sprain, hand fracture, cellulitis. This list is not meant all- inclusive EKG interpreted by me (3pts min.). @ -As above X-rays interpreted by me (1pt min.). @ -No acute fracture or dislocation CT interpreted by me (1pt min.). @ -None done U/S interpreted by me (1pt. min.). @ -None done What testing was considered but not performed or refused? (CT, X-rays, U/S, labs)? Why? @ -None What meds were considered but not given or refused? Why? @ -None Did you discuss the management of the patient with other professionals (professionals i.e. , PA, VESSEL ENGINEER, lab, RT, psych nurse, outreach and education social worker, rn spine, teacher, medical officer, social work case manager)? Give summary @ -No Was smoking cessation discussed for >3mins.? @ -No Was critical care preformed (if so, how long)? @ -No Were there social determinants of health that impacted care today? How? (Homelessness, low income, unemployed, alcoholism, drug addiction, tr ansportation, low edu. Level, literacy, decrease access to med. care, [place] [facility], rehab)? @ -No Was there de-escalation of care discussed even if they declined (Discuss DNR or withdrawal of care, Hospice)? DNR status @ -No What co-morbidities impacted this encounter? (DM, HTN, Smoking, COPD, CAD, Cancer, CVA, ARF, Chemo, Hep., AIDS, mental health diagnosis, sleep apnea, morbid obesity)? @ -None Was patient admitted / discharged? Hospital course, mention meds given and route, prescriptions, significant lab abnormalities, going to OR and other pertinent info. @ -Discharged Undiagnosed new problem with uncertain prognosis? @ -No Drug Therapy requiring intensive monitoring for toxicity (Heparin, Nitro, Insulin, Cardizem)? @ -No Were any procedures done? @ -siva bandage Diagnosis/symptom? @ -right hand sprain Acute, or Chronic, or Acute on Chronic? @ -acute Uncomplicated (without systemic symptoms) or Complicated (systemic symptoms)? @ -uncomplicated Side effects of treatment? @ -No Exacerbation, Progression, or Severe Exacerbation? @ -No Poses a threat to life or bodily function? How? (Chest pain, [place], MS, pneumonia, PE, COPD, DKA, ARF, appy, cholecystitis, CVA, Diverticulitis, Homicidal, Suicidal, threat to staff... and all critical care pts) @ -No Dr. Anderson is my attending Disposition Clinical Impression: Sprain of hand, right Disposition: HOME SELF-CARE Condition: Good Instructions (If sedation given, give patient instructions): Hand Sprain (ED) Additional Instructions: Keep the Siva bandage on until resolution of symptoms. Ice injury. Take me dication as directed. Follow-up with primary care provider in one to 2 days. Return to the emergency department if you experience new, concerning, or worsening symptoms. Prescriptions: Ibuprofen [Motrin] 600 mg PO Q6HR PRN #30 tab PRN Reason: Pain Is patient prescribed a controlled substance at d/c from ED?: No Referrals: Yvon Bill MD [Primary Care Provider] - 1-2 days
--- NOTE | 2022-11-14 20:36 | XR ---
PROCEDURE: XR hand complete RT - 3V DATE AND TIME: 11/14/2022 7:48 PM CLINICAL INDICATION: Pain; injury TECHNIQUE: Department protocol COMPARISON: None FINDINGS: There is no fracture or malalignment. The soft tissues are unremarkable. IMPRESSION: NO ACUTE PROCESS.
[2022-11-14 20:58] VITALS: BP 103/71; PULSE 69; RESP 16; TEMP 98.8
== END 2022-11-14 21:39 | disposition home or self-care (01) ==
LOC: EC 18:28
DX: S63.8X1A Sprain of other part of right wrist and hand, initial encounter (principal); F41.9 Anxiety disorder, unspecified; F17.200 Nicotine dependence, unspecified, uncomplicated; Z88.0 Allergy status to penicillin; Z88.8 Allergy status to other drugs, medicaments and biological substances; Z79.899 Other long term (current) drug therapy; X58.XXXA Exposure to other specified factors, initial encounter
CPT/HCPCS: 73130; 99283; 96372; J1885

== ENCOUNTER → 2022-12-05 | Outpatient (CLI) | payer OTHER ==
[2022-12-06 02:30] LABS: C Reactive Protein <0.30 mg/dL (0.00-0.80); Rheumatoid Factor, Qnt <15 IU/mL (0-15)
[2022-12-06 04:52] LABS: Anti-Smith Ab Interp Negative (Negative)
[2022-12-06 06:36] LABS: Cyclic Citrull Pep IgG Unit <1.5 U/mL (<=3.9); Cyclic Citrullinated Pep IgG Negative
== END | disposition home or self-care (01) ==
LOC: LABWHC1 15:27
PROVIDERS: ATTEND Nurse Practitioner Family
DX: M25.50 Pain in unspecified joint (principal)
CPT/HCPCS: 36415; 86038; 86140; 86200; 86235; 86431

== ENCOUNTER → 2022-12-05 | Outpatient (CLI) | payer OTHER | END | disposition home or self-care (01) | LOC: LABWHC1 16:24 | PROVIDERS: ATTEND Psychiatry & Neurology Neurology | DX: Z01.812 Encounter for preprocedural laboratory examination (principal) | CPT/HCPCS: 36415; 93005 ==

== ENCOUNTER 2022-12-22 10:17 | Emergency (ER) | payer OTHER ==
[2022-12-22] MEDS ORDERED: KETOROLAC 15 MG/ML 1 ML VIAL IM STA (11:56)
[2022-12-22] MEDS ORDERED: MORPHINE SULFATE 4 MG/ML SYRINGE IM STA (11:56)
--- NOTE | 2022-12-22 12:29 | ED ---
Extremity Problem HPI - General Chief complaint: Extremity Injury, Lower Stated complaint: L leg pain Time Seen by Provider: 12/22/22 11:52 Source: patient, RN notes reviewed Mode of arrival: ambulatory Limitations: no limitations - History of Present Illness Initial comments: This is a 37-year-old female who presents to the emergency department for left leg pain. Patient states that this started a couple of days ago. She was at work when it started and felt like her knee started to buckle. The pain started to shoot up the leg into the hip and she is having difficulty ambulating. Today the pain became much worse and she is now barely able to put pressure on the leg. She takes muscle relaxants and [place] at home, however this has not been effectively managing her symptoms. She has not noticed any swelling or redness to the leg. Denies any chest pain or shortness of breath. Denies any fevers, chills, sore throat, cough, dyspnea, chest pain, palpitations, abdominal pain, nausea, vomiting, diarrhea, back pain, or headaches. MD Complaint: extremity pain Location: left, lower extremity - Related Data Home Medications Medication Instructions Recorded Confirmed Baclofen [Lioresal] 20 mg PO BID PRN 04/10/21 06/13/21 Dicyclomine [Bentyl] 20 mg PO TID PRN 04/10/21 06/13/21 HYDROcodone/APAP 7.5-325MG [[place] 1 tab PO BID PRN 04/10/21 06/13/21 7.5-325] Omeprazole 20 mg PO QAM 04/10/21 06/13/21 Pregabalin 150 mg PO BID 04/10/21 06/13/21 Sucralfate [Carafate] 1 gm PO TID 04/10/21 06/13/21 Topiramate [Trokendi Xr] 100 mg PO QAM 04/10/21 06/13/21 Propranolol HCl 80 mg PO DAILY 06/13/21 06/13/21 Previous Rx's Medication Instructions Recorded Ondansetron [Zofran] 4 mg PO Q8HR PRN #30 tab 06/14/21 Ibuprofen [Motrin] 600 mg PO Q6HR PRN #30 tab 11/14/22 predniSONE 50 mg PO DAILY 5 Days #5 tab 12/22/22 Allergies Allergy/AdvReac Type Severity Reaction Status Date / Time amoxicillin trihydrate Allergy Nausea & Verified 12/22/22 10:45 [From Augmentin] Vomiting fexofenadine HCl Allergy Nausea & Verified 12/22/22 10:45 [From Aniyah] Vomiting potassium clavulanate Allergy Nausea & Verified 12/22/22 10:45 [From Augmentin] Vomiting Review of Systems ROS Statement: Those systems with pertinent positive or pertinent negative responses have been documented in the HPI. ROS Other: All systems not noted in ROS Statement are negative. Past Medical History Past Medical History: Fibromyalgia Additional Past Medical History / Comment(s): severe nausea,abdominal pain and cramping, hx migraines, hypoglycemia History of Any Multi-Drug Resistant Organisms: None Reported Past Surgical History: Appendectomy, Cholecystectomy, Hysterectomy, Orthopedic Surgery Additional Past Surgical History / Comment(s): right knee x2, right ankle, EGD Past Anesthesia/Blood Transfusion Reactions: No Reported Reaction Past Psychological History: Anxiety Smoking Status: Current every day smoker Past Alcohol Use History: None Reported Past Drug Use History: None Reported - Past Family History Father Family Medical History: No Reported History General Exam Limitations: no limitations General appearance: alert, in no apparent distress Head exam: Present: atraumatic, normocephalic, normal inspection Respiratory exam: Present: normal lung sounds bilaterally. Absent: respiratory distress, wheezes, rales, rhonchi, stridor Cardiovascular Exam: Present: regular rate, normal rhythm, normal heart sounds. Absent: systolic murmur, diastolic murmur, rubs, gallop, clicks Extremities exam: Present: other (Tenderness to palpation to the anterior posterior aspect of the left patella. No overlying deformities. Limited range of motion secondary to pain. 2+ DP and PT pulses. Capillary refill less than 1 second.) Neurological exam: Present: alert, oriented X3, CN II-XII intact Psychiatric exam: Present: normal affect, normal mood Skin exam: Present: warm, dry, intact, normal color. Absent: rash Course Vital Signs 12/22/22 12/22/22 10:39 15:00 Temperature 98.2 F 97.8 F Pulse Rate 82 78 Respiratory 20 18 Rate Blood Pressure 99/57 108/75 O2 Sat by Pulse 99 Oximetry Medical Decision Making - Medical Decision Making This is a 37-year-old female who presents to the emergency department for left leg pain. Was pt. sent in by a medical professional or institution? @ -No Did you speak to anyone other than the patient for history? @ -No Did you review nursing and triage notes? @ -Yes, and I agree, it is accurate with regards to the patient's symptoms. Were old charts reviewed? @ -No Differential Diagnosis? @ -Differential Leg Pain: Leg fracture, leg sprain, DVT, PVD, arterial insufficiency, iliac artery aneurysm, cellulitis, compartment syndrome, tendinopathy, nerve entrapment, piriformis syndrome, osteoarthritis, rhabdomyolysis, myositis, cramping from an electrolyte imbalance, this is not meant to be an all inclusive list. EKG interpreted by me (3pts min.)? @ -Not obtained X-rays interpreted by me (1pt min.)? @ -X-ray of the left knee and hip were obtained. My interpretation identifies no acute fractures. CT interpreted by me (1pt min.)? @ -Not obtained U/S interpreted by me (1pt. min.)? @ -Duplex ultrasound of the left lower extremity obtained. My interpretation identifies no evidence of a DVT. What testing was considered but not performed? (CT, X-rays, U/S, labs)? Why? @ -None What meds were considered but not given? Why? @ -None Did you discuss the management of the patient with other professionals? @ -No Did you reconcile home meds? @ -No Was smoking cessation discussed for >3mins.? @ -No Was critical care preformed (if so, how long)? @ -No Were there social determinants of health that impacted care today? How? (Homelessness, low income, unemployed, alcoholism, drug addiction, transportation, low edu. Level, literacy, decrease access to med. care, detention, rehab)? @ -No Was there de-escalation of care discussed even if they declined? (Discuss DNR or withdrawal of care, Hospice)? @ -No What co-morbidities impacted this encounter? (DM, HTN, Smoking, COPD, CAD, Cancer, CVA, Hep., AIDS, mental health diagnosis, sleep apnea, morbid obesity)? @ -Fibromyalgia Was patient admitted / discharged? @ -Discharged. X-ray of the left hip and knee obtained revealing a small suprapatellar bursal fluid collection suggestive of internal derangement. No acute fractures were identified. Duplex ultrasound of the left lower extremity obtained as well, also revealing no acute findings. Her pain was well controlled in the emergency department. Patient was given a knee immobilizer. Prescription for 5 day course of prednisone provided with dosing instructions reviewed. Advised she take this with Tylenol. She will otherwise follow-up with her orthopedic provider. Undiagnosed new problem with uncertain prognosis? @ -None Drug Therapy requiring intensive monitoring for toxicity (Heparin, Nitro, Insulin, Cardizem)? @ -None Were any procedures done? @ -None Diagnosis/symptom? @ -Suprapatellar effusion of left knee, internal derangement of left knee Acute, or Chronic, or Acute on Chronic? @ -Acute Uncomplicated (without systemic symptoms) or Complicated (systemic symptoms)? @ -Uncomplicated Side effects of treatment? @ -None Exacerbation, Progression, or Severe Exacerbation] @ -Not applicable Poses a threat to life or bodily function? @ -This is having an impact on her ability to ambulate. Return precautions reviewed in depth, the patient is instructed to return to the emergency department with any new, worsening, or concerning symptoms. Patient verbalized understanding. This case was discussed in detail with the attending ED physician, Dr. Sims. Presentation, findings, and treatment plan discussed in detail as well. - Radiology Data Radiology results: report reviewed, image reviewed Disposition Clinical Impression: Internal derangement of knee, Suprapatellar effusion of knee Disposition: HOME SELF-CARE Instructions (If sedation given, give patient instructions): Knee Pain (ED) Additional Instructions: Return to the emergency department with any new, worsening, or concerning symptoms. Take the prednisone daily for 5 days, with your first dose beginning tomorrow, as you received a shot of steroids in the emergency department today. Use the knee immobilizer as needed for support. Follow up with your orthopedic provider. Follow up with your primary care provider in 1-2 days. Prescriptions: predniSONE 50 mg PO DAILY 5 Days #5 tab Is patient prescribed a controlled substance at d/c from ED?: No Referrals: Lb Newton MD [Primary Care Provider] - 1-2 days
--- NOTE | 2022-12-22 13:18 | XR ---
EXAMINATION TYPE: XR knee complete LT DATE OF EXAM: 12/22/2022 COMPARISON: NONE HISTORY: Pain TECHNIQUE: Three views are submitted. FINDINGS: Joint spaces are preserved. Osseous structures are intact. No acute fracture seen. Small amount of fluid in the suprapatellar bursa. IMPRESSION: 1. No acute fracture or dislocation. Small amount of fluid in the suprapatellar bursa can be associa gricel with internal derangement the knee.
--- NOTE | 2022-12-22 13:19 | XR ---
EXAMINATION TYPE: XR Hip Complete LT DATE OF EXAM: 12/22/2022 COMPARISON: NONE HISTORY: Pain TECHNIQUE: 2 views submitted FINDINGS: There is no evidence of erosive change or acute fracture. IMPRESSION: 1. No evidence of acute fracture or dislocation.
--- NOTE | 2022-12-22 14:16 | US ---
EXAMINATION TYPE: US venous doppler duplex LE LT DATE OF EXAM: 12/22/2022 1:59 PM COMPARISON: NONE CLINICAL INDICATION: Female, 37 years old with history of Left leg pain; Cannot put pressure on left leg, no injury, no h/o dvt SIDE PERFORMED: Left TECHNIQUE: The lower extremity deep venous system is examined utilizing real time linear array sonog claudio with graded compression, doppler sonography and color-flow sonography. VESSELS IMAGED: Common Femoral Vein Deep Femoral Vein Greater Saphenous Vein * Femoral Vein Popliteal Vein Left Leg: Negative for DVT IMPRESSION: Grayscale, color doppler, spectral doppler imaging performed of the deep veins of the lo wer extremities. There is normal flow, compressibility, vascular waveforms.
[2022-12-22] MEDS ORDERED: DEXAMETHASONE SOD PHOSPHATE 10 MG/ML 1 ML VIAL IM STA (14:37)
[2022-12-22 15:00] VITALS: BP 108/75; PULSE 78; RESP 18; TEMP 97.8
== END 2022-12-22 15:04 | disposition home or self-care (01) ==
LOC: EC 10:17
DX: M23.92 Unspecified internal derangement of left knee (principal); M25.462 Effusion, left knee; M79.7 Fibromyalgia; F41.9 Anxiety disorder, unspecified; Z79.899 Other long term (current) drug therapy; Z88.1 Allergy status to other antibiotic agents; Z88.8 Allergy status to other drugs, medicaments and biological substances; Z90.49 Acquired absence of other specified parts of digestive tract
CPT/HCPCS: 73502; 73562; 93971; 99284; 96372 ×3; L1830 ×2; J2270; J1100; J1885

== ENCOUNTER 2023-01-12 17:13 | Emergency (ER) | payer OTHER ==
[2023-01-12] MEDS ORDERED: KETOROLAC 15 MG/ML 1 ML VIAL IM STA (17:34)
--- NOTE | 2023-01-12 17:40 | ED ---
Lower Extremity Injury HPI - General Chief Complaint: Extremity Injury, Lower Stated Complaint: L knee pain Time Seen by Provider: 01/12/23 17:21 Source: patient Mode of arrival: wheelchair Limitations: no limitations - History of Present Illness Initial Comments: 37-year-old female presenting with chief complaint of right knee pain. Patient has history of knee injury, currently being seen by orthopedics. No new injury or trauma. She states that she was seated at the kitchen table when she felt a sharp pain in the knee. She did have some pain radiating down the lower leg. No swelling. No redness. No fevers or chills. No numbness or tingling. - Related Data Home Medications Medication Instructions Recorded Confirmed Baclofen [Lioresal] 20 mg PO BID PRN 04/10/21 06/13/21 Dicyclomine [Bentyl] 20 mg PO TID PRN 04/10/21 06/13/21 HYDROcodone/APAP 7.5-325MG [[place] 1 tab PO BID PRN 04/10/21 06/13/21 7.5-325] Omeprazole 20 mg PO QAM 04/10/21 06/13/21 Pregabalin 150 mg PO BID 04/10/21 06/13/21 Sucralfate [Carafate] 1 gm PO TID 04/10/21 06/13/21 Topiramate [Trokendi Xr] 100 mg PO QAM 04/10/21 06/13/21 Propranolol HCl 80 mg PO DAILY 06/13/21 06/13/21 Previous Rx's Medication Instructions Recorded Ondansetron [Zofran] 4 mg PO Q8HR PRN #30 tab 06/14/21 Ibuprofen [Motrin] 600 mg PO Q6HR PRN #30 tab 11/14/22 predniSONE 50 mg PO DAILY 5 Days #5 tab 12/22/22 Allergies Allergy/AdvReac Type Severity Reaction Status Date / Time amoxicillin trihydrate Allergy Nausea & Verified 12/22/22 10:45 [From Augmentin] Vomiting fexofenadine HCl Allergy Nausea & Verified 12/22/22 10:45 [From Aniyah] Vomiting potassium clavulanate Allergy Nausea & Verified 12/22/22 10:45 [From Augmentin] Vomiting Review of Systems ROS Statement: Those systems with pertinent positive or pertinent negative responses have been documented in the HPI. ROS Other: All systems not noted in ROS Statement are negative. Past Medical History Past Medical History: Fibromyalgia Additional Past Medical History / Comment(s): severe nausea,abdominal pain and cramping, hx migraines, hypoglycemia History of Any Multi-Drug Resistant Organisms: None Reported Past Surgical History: Appendectomy, Cholecystectomy, Hysterectomy, Orthopedic Surgery Additional Past Surgical History / Comment(s): right knee x2, right ankle, EGD Past Anesthesia/Blood Transfusion Reactions: No Reported Reaction Past Psychological History: Anxiety Smoking Status: Current every day smoker Past Alcohol Use History: None Reported Past Drug Use History: None Reported - Past Family History Father Family Medical History: No Reported History General Exam Limitations: no limitations General appearance: alert, in no apparent distress Head exam: Present: atraumatic, normocephalic, normal inspection Eye exam: Present: normal appearance, EOMI Neck exam: Present: normal inspection, full ROM Respiratory exam: Absent: respiratory distress Right Knee exam: Present: normal inspection, full ROM, tenderness. Absent: swelling, deformity, erythema Neurovascular tendon exam: Present: no vascular compromise Neurological exam: Present: alert, oriented X3 Psychiatric exam: Present: normal affect, normal mood Skin exam: Present: warm, dry, intact, normal color. Absent: rash Course Vital Signs 01/12/23 01/12/23 17:15 18:50 Temperature 97.8 F 98.5 F Pulse Rate 80 84 Respiratory 20 18 Rate Blood Pressure 145/85 122/78 O2 Sat by Pulse 100 96 Oximetry Medical Decision Making - Medical Decision Making Was pt. sent in by a medical professional or institution (, PA, CORRECTIONAL SUPERVISOR, urgent care, hospital, or halfway...) When possible be specific @ -No Did you speak to anyone other than the patient for history (EMS, parent, family, police, friend...)? What history was obtained from this source @ -No Did you review nursing and triage notes (agree or disagree)? Why? @ -I reviewed and agree with nursing and triage notes Were old charts reviewed (outside hosp., previous admission, EMS record, old EKG, old radiological studies, urgent care reports/EKG's, halfway records)? Report findings @ -No old charts were reviewed Differential Diagnosis (chest pain, altered mental status, abdominal pain women, abdominal pain men, vaginal bleeding, weakness, fever, dyspnea, syncope, headache, dizziness, GI bleed, back pain, seizure, CVA, palpatations, mental health, musculoskeletal)? @ -Differential Musculoskeletal Muscular strain, contusion, ligament sprain, fracture, arthritis, septic arthritis, bursitis, cellulitis, muscle spasm, nerve compression, DVT, arterial occlusion, herpes zoster, electrolyte abnormality, tumor.... This is not meant to be in all inclusive list EKG interpreted by me (3pts min.). @ -As above X-rays interpreted by me (1pt min.). @ -X-ray negative for fracture or dislocation CT interpreted by me (1pt min.). @ -None done U/S interpreted by me (1pt. min.). @ -None done What testing was considered but not performed or refused? (CT, X-rays, U/S, labs)? Why? @ -None What meds were considered but not given or refused? Why? @ -None Did you discuss the management of the patient with other professionals (professionals i.e. , PA, CORRECTIONAL SUPERVISOR, lab, RT, psych nurse, web content & social media manager, fern cutter, t eacher, security officer, pillowcase maker)? Give summary @ -No Was smoking cessation discussed for >3mins.? @ -No Was critical care preformed (if so, how long)? @ -No Were there social determinants of health that impacted care today? How? (Homelessness, low income, unemployed, alcoholism, drug addiction, transportation, low edu. Level, literacy, decrease access to med. care, custodial, rehab)? @ -No Was there de-escalation of care discussed even if they declined (Discuss DNR or withdrawal of care, Hospice)? DNR status @ -No What co-morbidities impacted this encounter? (DM, HTN, Smoking, COPD, CAD, Cancer, CVA, ARF, Chemo, Hep., AIDS, mental health diagnosis, sleep apnea, morbid obesity)? @ -None Was patient admitted / discharged? Hospital course, mention meds given and ro adriana, prescriptions, significant lab abnormalities, going to OR and other pertinent info. @ -37-year-old female presenting with chief complaint of left knee pain. No injury or trauma. Previous injury for which she is following with orthopedics. Physical examination is unremarkable, she is neurovascularly intact. X-ray seems no fracture or dislocation. Patient is instructed to continue to follow up with her orthopedist. Follow-up with PCP. Report back to ER with any new or worsening symptoms. Discussed return parameters and answered all questions. Patient conveyed verbal understanding and agreed to the plan. I discussed this case in detail with my attending Dr. Sims Undiagnosed new problem with uncertain prognosis? @ -No Drug Therapy requiring intensive monitoring for toxicity (Heparin, Nitro, Insulin, Cardizem)? @ -No Were any procedures done? @ -No Diagnosis/symptom? @ -Knee pain Acute, or Chronic, or Acute on Chronic? @ -Acute on chronic Uncomplicated (without systemic symptoms) or Complicated (systemic symptoms)? @ -Uncomplicated Side effects of treatment? @ -No Exacerbation, Progression, or Severe Exacerbation? @ -No Poses a threat to life or bodily function? How? (Chest pain, [place], [place], pneumonia, PE, COPD, DKA, ARF, appy, cholecystitis, CVA, Diverticulitis, Homicidal, Suicidal, threat to staff... and all critical care pts) @ -No Disposition Clinical Impression: Knee pain Disposition: HOME SELF-CARE Condition: Good Instructions (If sedation given, give patient instructions): Knee Pain (ED) Additional Instructions: Follow-up with your orthopedist. Report back to ER with any new or worsening symptoms. Is patient prescribed a controlled substance at d/c from ED?: No Referrals: Lb Newton MD [Primary Care Provider] - 1-2 days Time of Disposition: 18:30
--- NOTE | 2023-01-12 18:07 | XR ---
EXAMINATION TYPE: XR knee complete LT DATE OF EXAM: 01/12/2023 5:56 PM CLINICAL INDICATION:Female, 37 years old with history of knee pain; [facility] COMPARISON: None. TECHNIQUE: XR knee complete LT; examined in Frontal, lateral and oblique projections. FINDINGS: Soft tissue swelling in the prepatellar soft tissues. No evidence of fracture. No significa nt degeneration. IMPRESSION: Soft tissue swelling without evidence of fracture.
[2023-01-12] MEDS ORDERED: ACETAMINOPHEN TAB 325 MG TAB PO STA (18:33)
[2023-01-12 19:10] VITALS: BP 122/78; PULSE 84; RESP 18; TEMP 98.5
== END 2023-01-12 18:55 | disposition home or self-care (01) ==
LOC: EC 17:13
DX: M25.562 Pain in left knee (principal); F17.200 Nicotine dependence, unspecified, uncomplicated; Z86.59 Personal history of other mental and behavioral disorders
CPT/HCPCS: 73562; 99283; 96372; J1885

== ENCOUNTER → 2023-01-27 | Outpatient (CLI) | payer OTHER ==
--- NOTE | 2023-01-28 18:46 | MR ---
EXAMINATION TYPE: MR knee LT wo con DATE OF EXAM: 01/27/2023 COMPARISON: None HISTORY: Left knee pain TECHNIQUE: Multiplanar, multisequence imaging of the left knee is performed without IV contrast. FINDINGS: There is a focal area of bone marrow edema consistent with contusion of the lateral and anterior aspe ct of the lateral femoral condyle. There is a tear of the anterior horn of the lateral meniscus extending to the inferior surface of the meniscus. There is thickening with abnormal signal within the lateral collateral ligament which is grossly inta ct but is consistent with partial tearing or strain. The medial collateral ligament and cruciate ligaments are intact. There is a small joint effusion and small LT loculated Rodriguez's cyst. The medial meniscus is intact. The quadriceps and patellar tendons are intact. IMPRESSION: 1. Contusion of the lateral femoral condyle without discrete fracture. 2. There of the anterior horn of the lateral meniscus. 3. Partial tearing/strain of the lateral collateral ligament. 4. Small joint effusion with small multiloculated Rodriguez's cyst.
== END | disposition home or self-care (01) ==
LOC: RADMRIMAIN 19:06
PROVIDERS: ATTEND Orthopaedic Surgery
DX: S80.02XA Contusion of left knee, initial encounter (principal); M71.22 Synovial cyst of popliteal space [Baker], left knee; M23.362 Other meniscus derangements, other lateral meniscus, left knee; M25.462 Effusion, left knee; X58.XXXA Exposure to other specified factors, initial encounter

== ENCOUNTER → 2023-03-25 | Outpatient (CLI) | payer OTHER ==
--- NOTE | 2023-03-25 15:07 | XR ---
EXAMINATION TYPE: XR foot complete LT DATE OF EXAM: 03/25/2023 COMPARISON: NONE HISTORY: Pain TECHNIQUE: Three views are submitted. FINDINGS: The osseous structures are intact. There is no acute fracture or dislocation. Joint spaces are p reserved. There are linear opaque densities overlying the dorsum of the foot and inferior to the calc aneus. Although this could be related to calcifications. Correlate to exclude a foreign body. IMPRESSION: 1. Linear radiopaque densities overlying the dorsum of foot and the soft tissues inferior to the calc aneus. Differential diagnosis would include of foreign body and soft tissue ossification\calcificatio n. Correlate clinically.
== END | disposition home or self-care (01) ==
LOC: RADXRMAIN 13:41
PROVIDERS: ATTEND Family Medicine
DX: M85.872 Other specified disorders of bone density and structure, left ankle and foot (principal); M79.672 Pain in left foot

== ENCOUNTER → 2023-06-20 | Outpatient (CLI) | payer OTHER | END | disposition home or self-care (01) | LOC: LABWHC1 10:30 | PROVIDERS: ATTEND Nurse Practitioner Family | DX: Z01.818 Encounter for other preprocedural examination (principal) | CPT/HCPCS: 36415; 93005 ==

== ENCOUNTER → 2023-08-26 | Outpatient (CLI) | payer OTHER | END | disposition home or self-care (01) | LOC: LABPAT 10:45 | PROVIDERS: ATTEND Orthopaedic Surgery | DX: Z01.812 Encounter for preprocedural laboratory examination (principal); M17.11 Unilateral primary osteoarthritis, right knee; Z22.322 Carrier or suspected carrier of Methicillin resistant Staphylococcus aureus | CPT/HCPCS: 87070 ==

== ENCOUNTER 2023-09-16 05:36 | Day surgery (SDC) | payer OTHER ==
--- NOTE | 2023-09-15 10:13 | P.HPOR ---
History of Present Illness H&P Date: 09/15/23 Chief Complaint: Right knee pain The patient is a 38-year-old female who presents with right knee pain has progressed with a past several years. It's worsened recently. She's having anterior and medial pain with weightbearing activities. She denies buckling and giving way. She is having night symptoms. She's tried medications in addition to previous injections without much relief. She's had 2 knee arthroscopies in the past. Review of Systems As per [facility] Past Medical History Past Medical History: Fibromyalgia Additional Past Medical History / Comment(s): severe nausea,abdominal pain and cramping, hx migraines, hypoglycemia History of Any Multi-Drug Resistant Organisms: None Reported Past Surgical History: Appendectomy, Cholecystectomy, Hysterectomy, Orthopedic Surgery Additional Past Surgical History / Comment(s): right knee x2, right ankle, EGD Past Anesthesia/Blood Transfusion Reactions: No Reported Reaction Smoking Status: Current every day smoker - Past Family History Father Family Medical History: No Reported History Medications and Allergies Home Medications and Allergies Comment(s): As per [facility] Home Medications Medication Instructions Recorded Confirmed Type HYDROcodone/APAP 7.5-325MG [[place] 1 tab PO BID PRN 04/10/21 09/11/23 History 7.5-325] Topiramate [Trokendi Xr] 100 mg PO QAM 04/10/21 09/11/23 History Propranolol HCl 80 mg PO DAILY 06/13/21 09/11/23 History Ondansetron [Zofran] 4 mg PO Q8HR PRN #30 tab 06/14/21 09/11/23 Rx Cyclobenzaprine [Flexeril] 10 mg PO BID 09/11/23 09/11/23 History Pantoprazole [Protonix] 40 mg PO QAM 09/11/23 09/11/23 History Pregabalin [Lyrica] 75 mg PO BID 09/11/23 09/11/23 History buPROPion HCL [Wellbutrin SR] 450 mg PO QAM 09/11/23 09/11/23 History traZODone HCL 300 mg PO HS 09/11/23 09/11/23 History Allergies Allergy/AdvReac Type Severity Reaction Status Date / Time amoxicillin trihydrate Allergy Nausea & Verified 09/11/23 14:36 [From Augmentin] Vomiting fexofenadine HCl Allergy Nausea & Verified 09/11/23 14:36 [From Aniyah] Vomiting potassium clavulanate Allergy Nausea & Verified 09/11/23 14:36 [From Augmentin] Vomiting Physical Examination - Knee right Appearance: effusion Effusion grade: grade 1 Tenderness with palpation: anterior, medial Pain: throughout ROM Gait: limping ROM: extension: -10 degrees ROM: flexion: 75 degrees Crepitus with motion: Yes Strength: extension: 5/5 Strength: flexion: 5/5 Meniscal tests: medial meniscal tests: positive, medial joint line pain: positive Results She is a well-developed well-nourished female proximally 5 foot 2, 165 pounds of endomorphic habitus. HEENT exam is nonfocal, neck is supple. She has painless passive motion of her right hip. Straight leg raise is negative. She is tender about the medial joint line of the right knee. Collaterals are stable, Ida was negative, Randal's is equivocal. She has genu varum alignment. Her distal neurovascular appears intact in the right lower extremity. - Diagnostic results Knee x-ray: image reviewed (3 views the right knee obtained in the office show severe medial compartment osteoarthrosis with [id number] changes and subchondral sclerosis.) Assessment and Plan Assessment: Right knee severe medial compartment osteoarthrosis Plan: I talked to the patient at length regarding her condition along with treatment options. At this point she remains quite symptomatic despite extensive previous conservative measures. After a thorough discussion she opted to proceed with surgery. Risks and benefits were discussed at length in layman's terms. We will plan to proceed with right total knee arthroplasty. We will institute DVT prophylaxis postoperatively.
[~2023-09-16 05:36] MED LIST changes: -LACTATED RINGERS 1,000 ML IV SCH; +TRANEXAMIC 1,000 MG/100ML-NACL 1,000 MG in SALINE 1 100ML.BAG IVPB PRN
[2023-09-16] MEDS: MELOXICAM 7.5 MG TAB PO PRN (06:59)
[2023-09-16] MEDS: ACETAMINOPHEN TAB 500 MG TAB PO PRN (06:59)
[2023-09-16] MEDS ORDERED: MIDAZOLAM 2 MG/2 ML VIAL IV PRN (07:00)
[2023-09-16] MEDS: ONDANSETRON 4 MG/2 ML VIAL IVP ONE (07:00)
[2023-09-16] MEDS: DEXAMETHASONE SOD PHOSPHATE 4 MG/ML 1 ML VIAL IV ONE (07:00)
[2023-09-16] MEDS: VANCOMYCIN 1,250 MG in SODIUM CHLORIDE 0.9% 250 ML IVPB PRN (07:02)
[2023-09-16] MEDS: LACTATED RINGERS 1,000 ML IV SCH (07:02)
[2023-09-16] MEDS: fentaNYL (PF) 50 MCG/ML 2 ML AMP IVP ONE (07:09)
[2023-09-16] MEDS: MIDAZOLAM 2 MG/2 ML VIAL IVP ONE (07:09)
[2023-09-16] MEDS ORDERED: PROPOFOL 10 MG/ML 20 ML VIAL IV ONE (07:30)
[2023-09-16] MEDS ORDERED: ROPIVACAINE 5 MG/ML 30 ML VIAL ONE (07:30)
[2023-09-16] MEDS ORDERED: SODIUM CHLORIDE 0.9% (PF) 10 ML VIAL ONE (07:30)
[2023-09-16] MEDS ORDERED: fentaNYL (PF) 50 MCG/ML 2 ML AMP ONE (07:30)
[2023-09-16] MEDS ORDERED: MIDAZOLAM 2 MG/2 ML VIAL ONE (07:30)
[2023-09-16] MEDS ORDERED: PHENYLEPHRINE 10 MG/ML VIAL ONE (07:30)
[2023-09-16] MEDS: IV FLUID CONTINUATION 1,000 ML IV ONE ×2 (07:31→08:53)
[2023-09-16] MEDS: ceFAZolin 1,000 MG in SODIUM CHLORIDE 0.9% 1,000 ML IRRIGATION ONE (08:06)
--- NOTE | 2023-09-16 08:25 | P.ANPRN ---
Procedure Note - Anesthesia - Nerve Block Performed Right Adductor Canal Infusion Time Out Performed: Yes (0709) Date of Procedure: 09/16/23 Procedure Start Time: 07:10 Procedure Stop Time: 07:13 Location of Patient: PreOp Indication: Acute Post-Operative Pain, Requested by Surgeon Specifically requested for management of pain by : Gerry Davila Sedation Type: Sedate with meaningful contact maintained Preparation: Sterile Prep, Sterile Dressing Position: Supine Catheter Depth at Skin (cm): 9 Catheter: Indwelling Needle Types: Macarena Needle Gauge: 18 Ultrasound used to visualize needle placement: Yes Ultrasound used to observe medication spread: Yes Injectate: 0.5% Ropivacaine (see comment for volume) Blood Aspirated: No Pain Paresthesia on Injection Noted: No Resistance on Injection: Normal Image Stored and Saved: Yes Events: Uneventful and Well Tolerated
--- NOTE | 2023-09-16 08:27 | P.ANPRN ---
Procedure Note - Anesthesia - Nerve Block Performed Right iPack Single Time Out Performed: Yes (0709) Date of Procedure: 09/16/23 Procedure Start Time: 07:14 Procedure Stop Time: 07:16 Location of Patient: PreOp Indication: Acute Post-Operative Pain, Requested by Surgeon Specifically requested for management of pain by DrAleksandr: Gerry Davila Sedation Type: Sedate with meaningful contact maintained Preparation: Sterile Prep Position: Supine Catheter: None Needle Types: Pajunk Needle Gauge: 21 Ultrasound used to visualize needle placement: Yes Ultrasound used to observe medication spread: Yes Injectate: 0.5% Ropivacaine (see comment for volume) (15cc +10cc nacl pf) Blood Aspirated: No Pain Paresthesia on Injection Noted: No Resistance on Injection: Normal Image Stored and Saved: Yes Events: Uneventful and Well Tolerated
[2023-09-16] MEDS ORDERED: HYDROcodone/APAP 5-325MG 1 EACH TAB PO PRN (09:06)
[2023-09-16] MEDS ORDERED: hydrOXYzine pamoate 25 MG CAP PO PRN (09:06)
[2023-09-16] MEDS ORDERED: NALOXONE 0.4 MG/ML 1 ML VIAL IV PRN (09:06)
[2023-09-16] MEDS ORDERED: MAGNESIUM HYDROXIDE 2,400 MG/30 ML CUP PO PRN (09:06)
--- NOTE | 2023-09-16 09:29 | P.OP ---
Date of Procedure: 09/16/23 Preoperative Diagnosis: Right knee severe tricompartmental osteoarthrosis Postoperative Diagnosis: Same Procedure(s) Performed: Right total knee arthroplastycementedcruciate retaining Implants: [employer] journey 2 size 5 cemented femoral component, size 4 cemented tibial component, 9 mm articular surface, 29 mm cemented patellar component. This is a cruciate retaining implant. Anesthesia: regional, spinal Surgeon: Gerry Davila Hydrodynamicist #1: Franklin Barclay Estimated Blood Loss (ml): 50 Pathology: none sent Condition: stable Disposition: PACU Indications for Procedure: The patient is a 38-year-old female who presents with progressive right knee pain secondary to osteoarthrosis despite extensive conservative measures. A discussion of the risks and benefits of operative intervention versus continued conservative measures was made with the patient. She opted to proceed with surgery. She understands she is at high risk for lifetime need of revision secondary to her age. Specific risks of surgery to include infection, neurovascular injury, development of blood clots, fracture, possible component loosening/failure and possible need for subsequent procedures was discussed. Informed consent was obtained. Operative Findings: As below Description of Procedure: The patient was brought to the operating room, and after induction of spinal anesthesia the right lower extremity was prepped and draped in a normal fashion. The tourniquet was inflated to 270 mmHg. A longitudinal incision extending 3 finger breaths above the superior pole of the patella extending to the medial aspect the tibial tubercle was then made. The skin and subcutaneous tissues were divided sharply. Electrocautery was used for hemostasis. A medial parapatellar arthrotomy was then performed. The medial soft tissues to include the superficial and deep portions of the medial collateral ligament as well as the medial hamstring tendons were elevated subperiosteally. The proximal medial tibia osteophytes were carefully removed. The patella was everted. The knee was flexed. A portion of the retropatellar fat pad was excised sharply. The anterior cruciate ligament was sacrificed. A starting hole was made in the distal femur 1 cm anterior to the posterior cruciate origin. An intramedullary femoral guide was gently inserted planning on 5 valgus distal cut with 9 mm d istal resection. The cutting block was pinned in place. The distal cut was then made. The posterior referencing sizing guide was utilized. 3 of external rotation was built into the system and verified off the trans- epicondylar axis and the posterior condyles. I felt size 5 was most appropriate. The cutting block was pinned in place. The anterior, posterior, and chamfer cuts were then made. The bone fragments were removed. A sulcus cut was then made with the appropriate guide. The trial size 5 femoral component was then placed and was fully seated. There was good anterior to posterior and medial to lateral fit. The distal peg holes were then drilled. The trial component was then removed. Attention was then paid towards preparing the proximal tibia. An extra medullary guide was utilized in line with the tibial shaft and second metatarsal distally. A 3 posterior slope was planned. I planned on 2 mm resection from the medial compartment. The cutting block was pinned in place. The proximal tibial cut was then made. The bone was removed in one fragment. The remnants of the medial and lateral menisci were excised the capsule junction with electrocautery. The tibia sized most appropriately at size 4. The posterior osteophytes off the distal femur were carefully removed with a curved osteotome. The trial tibial and femoral components were placed along with a 9 millimeters articular surface. I was able to obtain full flexion and extension with good stability with varus and valgus stress. After several flexion and extension cycles, the tibial rotation was marked with electrocautery in line with the medial one third of the tibial tubercle. Attention was then paid towards preparing the patella. A patella reamer was utilized taking this down to 14 mm of bone stock. A good flush cut was made. The patella sized most appropriately at 29 millimeters. The peg holes were then drilled. The trial component was placed. The knee was taken through a range of motion. I had good patellofemoral tracking with no hands technique. The trial components were then removed. The tibia was prepared in the appropriate rotation with appropriate drill and keel punch. The flexion and extension gaps were checked and felt to be symmetric. The bony surfaces were prepared with pulsatile lavage and dried. The tibial component was then cemented in place and was fully seated. Excess cement was removed. The femoral component was cemented in place and was fully seated. Again excess cement was removed. The trial 9 millimeters surface was then inserted in the knee was put in full extension. The patella component was cemented in place. After the cement had sufficiently hardened, the knee was again taken through a range of motion. Again there was good stability in flexion and extension with varus and valgus stress. The trial articular surface was then removed. The final articular surface was placed and was impacted. Care was taken to avoid any soft tissue interposition. Pulsatile lavage was again utilized. The tourniquet was deflated with approximately 60 minutes total tourniquet time. There was minimal drainage therefore a deep drain was not placed. The medial parapatellar arthrotomy was then closed with #2 Ethibond suture. The subcutaneous tissues were reapproximated interrupted 2-0 Vicryl sutures. The skin was reapproximated with 3-0 subarticular strata fix suture. Skin tape and adhesive was applied. A sterile dressing was applied. The patient was then awoken from sedation and transferred to recovery room in good condition. Blood loss was estimated at 50 milliliters. No complications were incurred. Sponge and needle counts were correct at the end the case. Franklin DEAN assisted during the major components this case to include exposure, bone resection, and implantation.
[2023-09-16] MEDS: ROPIVACAINE 1,100 MG, SODIUM CHLORIDE 0.9% 500 ML 330 ML, EMPTY PAIN BALL 1 EACH MISCELLANE PRN (09:59)
--- NOTE | 2023-09-16 12:00 | XR ---
EXAMINATION TYPE: XR knee limited RT DATE OF EXAM: 09/16/2023 COMPARISON: NONE TECHNIQUE: Two views submitted HISTORY: Post op FINDINGS: There is a prosthetic knee in near anatomic alignment. There is soft tissue edema and soft tissue e mphysema. IMPRESSION: 1. Postoperative change.
[2023-09-16] MEDS: HYDROmorphone 0.5 MG/0.5 ML SYRINGE IVP PRN ×2 (12:02→16:12)
[2023-09-16] MEDS: HYDROcodone/APAP 10-325MG 1 EACH TAB PO PRN (14:14)
[2023-09-16] MEDS: SCOPOLAMINE 1 MG/72 HR PATCH TRANSDERM ONE (15:05)
--- NOTE | 2023-09-16 19:04 | P.CONS ---
History of Present Illness - Reason for Consult Consult date: 09/16/23 Medical management - Chief Complaint Right total knee arthroplasty - History of Present Illness Patient is a 38-year-old female with a past medical history of osteoarthritis of the knee, right knee injury, fibromyalgia, IBS, currently everyday smoker presents to ER for elective right total knee arthroplasty. Patient failed outpatient conservative measures and opted for total knee arthroplasty. Patient had 2 knee arthroscopies in the past. Also had steroid injections without much relief. Patient is currently lying in the bed. Complains of right lower extremity pain. No complaints of chest pain or shortness of breath. No nausea vomiting abdominal pain or diarrhea. X-ray of the right knee showed postoperative changes. Blood pressure 107/62 pulse is 88 respiration 18 and pulse ox 100% on room air. Review of Systems Constitutional: Patient denies any fever or chills . No generalized weakness or weight loss. Abdomen: Patient denied nausea vomiting and diarrhea and abdominal pain. Cardiovascular: Patient denies any chest pain or short of breath no palpitations. Respiratory: patient denied any cough or sputum production. No shortness of breath Neurologic: Patient denied any numbness or tingling. no headache. Musculoskeletal: Patient denies any complaints of joint swelling or deformity. Right knee pain. Skin: Negative Psychiatric: Negative Endocrine: No heat or cold intolerance. No recent weight gain. Genitourinary: No dysuria or hematuria. All other 14 point ROS negative except the above Past Medical History Past Medical History: Fibromyalgia Additional Past Medical History / Comment(s): severe nausea,abdominal pain and cramping, hx migraines, hypoglycemia History of Any Multi-Drug Resistant Organisms: None Reported Past Surgical History: Appendectomy, Cholecystectomy, Hysterectomy, Orthopedic Surgery Additional Past Surgical History / Comment(s): right knee x2, right ankle, EGD Past Anesthesia/Blood Transfusion Reactions: No Reported Reaction Past Psychological History: Anxiety Additional Psychological History / Comment(s): not currently medicated Smoking Status: Current every day smoker Past Alcohol Use History: None Reported Additional Past Alcohol Use History / Comment(s): started smoking at age 14, 2 CIG PER DAY. NICOTINE GUM Past Drug Use History: None Reported - Past Family History Father Family Medical History: No Reported History Medications and Allergies Home Medications Medication Instructions Recorded Confirmed Type HYDROcodone/APAP 7.5-325MG [[place] 1 tab PO BID PRN 04/10/21 09/11/23 History 7.5-325] Topiramate [Trokendi Xr] 100 mg PO QAM 04/10/21 09/11/23 History Propranolol HCl 80 mg PO DAILY 06/13/21 09/11/23 History Ondansetron [Zofran] 4 mg PO Q8HR PRN #30 tab 06/14/21 09/11/23 Rx Cyclobenzaprine [Flexeril] 10 mg PO BID 09/11/23 09/11/23 History Pantoprazole [Protonix] 40 mg PO QAM 09/11/23 09/11/23 History Pregabalin [Lyrica] 75 mg PO BID 09/11/23 09/11/23 History buPROPion HCL [Wellbutrin SR] 450 mg PO QAM 09/11/23 09/11/23 History traZODone HCL 300 mg PO HS 09/11/23 09/11/23 History Allergies Allergy/AdvReac Type Severity Reaction Status Date / Time amoxicillin trihydrate Allergy Nausea & Verified 09/16/23 06:20 [From Augmentin] Vomiting fexofenadine HCl Allergy Nausea & Verified 09/16/23 06:20 [From Aniyah] Vomiting potassium clavulanate Allergy Nausea & Verified 09/16/23 06:20 [From Augmentin] Vomiting Physical Exam Vitals: Vital Signs Temp Pulse Resp BP Pulse Ox 09/16/23 13:00 96 18 118/72 97 09/16/23 12:30 88 18 107/62 100 09/16/23 12:00 83 18 107/60 100 09/16/23 11:30 64 18 102/67 96 09/16/23 11:00 62 16 107/72 97 09/16/23 10:26 63 16 117/77 97 09/16/23 10:11 61 18 115/86 97 09/16/23 09:56 58 L 16 113/86 97 09/16/23 09:41 90 16 108/80 97 09/16/23 09:26 97.1 F L 78 16 113/86 96 09/16/23 07:25 70 16 96/56 98 09/16/23 06:40 97.2 F L 65 16 107/61 98 Intake and Output 09/16/23 09/16/23 09/16/23 06:59 14:59 22:59 Intake Total 1301 Output Total 50 Balance 1251 Intake: IV 1301 Output: Estimated Blood Loss 50 Other: # Voids 1 Weight 81.3 kg 81.3 kg PHYSICAL EXAMINATION: Patient is lying in the bed comfortably, no acute distress, awake alert and oriented.. HEENT: Normocephalic. Neck is supple. Pupils reactive. Nostrils clear. Oral ca vity is moist. Neck reveals no JVD, carotid bruits, or thyromegaly. CHEST EXAMINATION: Trachea is central. Symmetrical expansion. Basilar diminished sounds, otherwise lung gallegos clear to auscultation and percussion. CARDIAC: Normal S1, S2 with no gallops. No murmurs ABDOMEN: Soft. Bowel sounds normal. No organomegaly. No abdominal bruits. Extremities: reveal no edema. No clubbing or cyanosis Neurologically awake, alert, oriented x3 with well-coordinated movements. No focal deficits noted Skin: No rash or skin lesions. Psychiatric: Coperative. Nonsuicidal Musculoskeletal: No joint swelling or deformity. Right knee surgical site is bandaged.. Assessment and Plan Assessment: Patient is s/p right total knee arthroplasty due to severe tricompartmental osteoarthrosis. Postoperative day 0 Fibromyalgia Irritable bowel syndrome History of migraine headaches Currently everyday smoker Prior history of right knee arthroscopies x 2 DVT prophylaxis patient is on Xarelto Plan: Patient will be continued on current pain management, bowel regimen and encourage incentive spirometry. Patient will be continued on home medications including bupropion, trazodone and topiramate and propranolol. Follow-up CBC and BMP tomorrow. Continue to follow closely and further recommendations based on clinical course. Thank you kindly for your consult. Time with Patient: Greater than 30
[2023-09-16] MEDS: HYDROmorphone 1 MG/ML 1 ML SYRINGE IVP PRN (20:57)
[2023-09-16] MEDS: traZODone HCL 100 MG TAB PO SCH (21:48)
[2023-09-16] MEDS: PREGABALIN 75 MG CAP PO SCH (22:55)
[2023-09-16] MEDS: SENNOSIDES-DOCUSATE SODIUM 1 EACH TAB PO SCH (22:56)
[2023-09-17] MEDS: CYCLOBENZAPRINE 10 MG TAB PO PRN (03:05)
[2023-09-17 03:31] VITALS: RESP 16
--- NOTE | 2023-09-17 06:59 | P.PN ---
Progress Note - Text Progress Note Date: 09/17/23 Postoperative day # 1 status post total knee arthroplasty, and adductor canal catheter placed for postoperative analgesia, currently at ropivacaine 0.2% 8 mL per hour and continuous infusion, visual analogue scale is 3/10, patient using oral pain medication for breakthrough pain. Assessment and plan= Acute postoperative pain, adductor canal catheter for pain control, pain is well controlled we'll continue the same management.
[2023-09-17 07:27] VITALS: BP 108/70; PULSE 85; TEMP 97.9
[2023-09-17] MEDS: PANTOPRAZOLE 40 MG TABLET PO SCH (08:00)
[2023-09-17] MEDS: RIVAROXABAN 10 MG TAB PO SCH (08:00)
[2023-09-17] MEDS: PROPRANOLOL LA 80 MG CAP.SA.24H PO SCH (08:01)
[2023-09-17] MEDS: buPROPion SR 150 MG TABLET.ER PO SCH (08:01)
[2023-09-17] MEDS: TOPIRAMATE 25 MG TAB PO SCH (08:01)
[2023-09-17 08:46] LABS: Basophils # (A) 0.01 X 10*3/uL (0.00-0.10); Basophils % (A) 0.1 %; Eosinophils # (A) 0.08 X 10*3/uL (0.04-0.35); Eosinophils % (A) 1.1 %; HCT 31.8 % (37.2-46.3); HGB 10.5 g/dL (12.0-15.0); Lymphocytes # (A) 1.52 X 10*3/uL (0.90-5.00); Lymphocytes % (A) 21.2 %; MCH 31.8 pg (27.0-32.0); MCV 96.4 FL (80.0-97.0); Mean Platelet Volume 12.7 FL (9.5-12.2); Monocytes # (A) 0.54 X 10*3/uL (0.20-1.00); Monocytes % (A) 7.5 %; NRBC Per 100 WBC 0 X 10*3/uL (0.00-0.01); Neutrophils % (A) 69.7 %; Platelet Count 136 X 10*3/uL (140-440); RDW 13.1 % (11.5-14.5); WBC 7.18 X 10*3/uL (4.50-10.00)
[2023-09-17 09:08] LABS: BUN/Creat Ratio 6.12 Ratio (12.00-20.00); Blood Urea Nitrogen 4.9 mg/dL (9.0-27.0); Calcium 8.2 mg/dL (8.7-10.3); Carbon Dioxide 21.1 mmol/L (21.6-31.8); Chloride 107 mmol/L (96-109); Glucose 126 mg/dL (70-110); Potassium 3.8 mmol/L (3.5-5.5); Sodium 138 mmol/L (135-145)
--- NOTE | 2023-09-17 11:31 | P.DS ---
Providers Date of admission: 09/16/2023 Expected date of discharge: 09/17/23 Attending physician: Gerry Davila Consults: 09/16/23 09:08 Consult Physician Routine Consulting Provider: Jam Carcamo Consult Reason/Comments: Medical Management s/p right total knee arthroplasty Do you want consulting provider notified?: Yes Primary care physician: Rowena Murray Hospital Course: Date of admission: 09/16/2023 Date of discharge: 09/17/2023 Admission diagnosis: Right knee osteoarthritis Discharge diagnosis: same Attending physician: Dr. Davila Surgical procedures: Right total knee arthroplasty Brief history: Patient is a 38-year-old female with a history of progressive primary right knee osteoarthritis. At this point patient has failed conservative treatment measures and has opted to proceed with a elective right total knee arthroplasty. Hospital course: Details of patient's surgery can be found in operative report. Patient tolerated the procedure well and was subsequently transported to orthopedic floor. Patient's orthopeidc and medical care was provided daily. Patient had daily laboratory tests performed for evaluation of overall blood counts. Patient had daily physical therapy to include strengthening range of motion as well as education with walker ambulation. Patient was treated with Xarelto for their postoperative DVT prophylaxis during their inpatient stay. Patient was noted to have a relatively uneventful postoperative course. Patient reported satisfactory pain control with oral pain medications by postoperative day 1. Patient showed satisfactory progress with physical therapy. Patient moved steadily through the program and had no difficulty meeting the goals by postoperative day 1. Given patient's otherwise satisfactory course and having met physical therapy goals, plan is to discharge patient home with health services on postoperative day 1. Discharge condition/disposition: Patient will be discharged home with health se rvices in stable condition. Discharge medications: Instructions are given on resumption of patient's normal daily medications per primary care recommendation, in addition patient will be prescribed Flexeril; Eliquis 2.5 mg twice a day 2 weeks. Discharge instructions: 1. Wound care and infection precautions, keep incision dry and covered while showering, no lotions, creams, moisturizers. No soaking, tubs, pools, hottubs. Do not scrub over the incision. 2. Weight-bear as tolerated with walker / cane until follow-up. 3. Ice and elevate when necessary. Do not exceed 20 minutes per hour with ice pack. 4. Utilize compression sleeve until seen at first follow up appointment. 5. Visiting nursing care. 6. Home physical therapy including home CPM. 7. Pain meds and anticoagulants per prescription. 8. Pain medication has potential to cause constipation. Increase oral fluid and fiber intake. Contact primary care provider if you have not had a bowel movement within 48 hours after discharge 9. No anti-inflammatory medication until discussed at first post operative visit, this including Motrin, Aleve, Mobic, Diclofenac. 10. Follow up in office at 2 weeks postop with Praneeth Barreto PA-C / Franklin Barclay PA-C 11. Follow up with your primary care doctor 7-10 days after discharge. 12. Contact [facility] with any questions, . Assessment: Right knee osteoarthritis Procedures: Right total knee arthroplasty Patient Condition at Discharge: Good Plan - Discharge Summary Discharge Rx Participant: Yes New Discharge Prescriptions: No Action Cyclobenzaprine [Flexeril] 10 mg PO BID buPROPion HCL [Wellbutrin SR] 450 mg PO QAM HYDROcodone/APAP 7.5-325MG [[place] 7.5-325] 1 tab PO BID PRN PRN Reason: Pain Topiramate [Trokendi Xr] 100 mg PO QAM Propranolol HCl 80 mg PO DAILY Ondansetron [Zofran] 4 mg PO Q8HR PRN #30 tab PRN Reason: Nausea Pantoprazole [Protonix] 40 mg PO QAM Pregabalin [Lyrica] 75 mg PO BID traZODone HCL 300 mg PO HS Discharge Medication List HYDROcodone/APAP 7.5-325MG [[place] 7.5-325] 1 tab PO BID PRN 04/10/21 [History] Topiramate [Trokendi Xr] 100 mg PO QAM 04/10/21 [History] Propranolol HCl 80 mg PO DAILY 06/13/21 [History] Ondansetron [Zofran] 4 mg PO Q8HR PRN #30 tab 06/14/21 [Rx] Cyclobenzaprine [Flexeril] 10 mg PO BID 09/11/23 [History] Pantoprazole [Protonix] 40 mg PO QAM 09/11/23 [History] Pregabalin [Lyrica] 75 mg PO BID 09/11/23 [History] buPROPion HCL [Wellbutrin SR] 450 mg PO QAM 09/11/23 [History] traZODone HCL 300 mg PO HS 09/11/23 [History] Follow up Appointment(s)/Referral(s): Franklin Barclay, TERESA [PHYSICIAN HEBREW CANTOR] - 2 Weeks [facility],Equipment [NON-STAFF] - As Needed (*Please call [facility] to arrange delivery of the Continuous Passive Motion (CPM) machine. ) [facility], [NON-STAFF] - 1-2 Days ([facility] will call you to schedule your in home nursing and physical therapy visits. ) Patient Instructions/Handouts: Knee Replacement (DC), Knee Replacement (GEN) Activity/Diet/Wound Care/Special Instructions: Orthopedic Discharge Instructions: 1. Wound care and infection precautions, keep incision dry and covered while showering, no lotions, creams, moisturizers. No soaking, pools, hot tubs. Do not scrub over incision. 2. Weight-bear as tolerated with walker / cane until follow-up. 3. Ice and elevate when necessary. Do not exceed 20 minutes per hour with ice pack. 4. Utilize compression sleeve until seen at first follow up appointment. 5. Pain meds and anticoagulants per prescription. 6. Pain medication has potential to cause constipation. Increase oral fluid and fiber intake. Contact primary care provider if you have not had a bowel movement within 48 hours after discharge. 7. No anti-inflammatory medication until discussed at first post operative visit, this including Motrin, Aleve, Mobic, Diclofenac. 8. Follow up in office at 2 weeks postop with Praneeth Barreto PA-C / Franklin Barclay PA-C 9. Follow up with your primary care doctor 7-10 days after discharge. 10. Contact [facility] with any questions, . Keep incision clean, dry, intact. While showering, cover fusion tape with Saran wrap. Keep fusion tape on until follow-up appointment office in 2 weeks Discharge Disposition: HOME WITH HOME HEALTH SERVICES
--- NOTE | 2023-09-17 11:42 | P.PN ---
Subjective Progress Note Date: 09/17/23 Principal diagnosis: Right knee osteoarthritis Patient was seen at bedside this morning lying semirecumbent position with dressing present over right knee. Patient says she did do well with therapy this morning walking around the du and up-and-down stairs. Patient says she does need a walker for home. Patient says she has urinated since yesterday after surgery without issue. Patient says she has not had a bowel movement yet, however, patient says she has been passing gas. Patient denies chest pain, fever, shortness of breath, nausea, vomiting, change in vision, loss of bowel/bladder control. Objective - Vital Signs Vital signs: Vital Signs Temp 97.9 F 09/17/23 07:27 Pulse 85 09/17/23 07:27 Resp 16 09/17/23 07:27 BP 108/70 09/17/23 07:27 Pulse Ox 98 09/17/23 07:27 FiO2 Intake & Output 09/16/23 09/17/23 09/17/23 18:59 06:59 18:59 Intake Total 1301 1080 Output Total 50 Balance 1251 1080 Weight 81.3 kg Intake: IV 1301 Oral 1080 Output: Estimated Blood Loss 50 Other: # Voids 1 4 - Exam Right knee: Incision is clean, dry, and intact. The exofin fusion tape is in good condition. There is minimal soft tissue swelling and ecchymosis surrounding the medial and lateral aspects of the incision. Calf is soft, no tenderness with palpation. Plantar flexion, dorsiflexion, EHL, FHL are intact. Sensory exam to light touch throughout the extremity is intact, dorsal pedis pulses 2+. - Labs CBC & Chem 7: 09/17/23 04:43 09/17/23 04:43 Labs: Abnormal Lab Results - Last 24 Hours (Table) 09/17/23 09/17/23 Range/Units 04:43 04:43 RBC 3.30 L (4.10-5.20) X 10*6/uL Hgb 10.5 L (12.0-15.0) g/dL Hct 31.8 L (37.2-46.3) % Plt Count 136 L (140-440) X 10*3/uL MPV 12.7 H (9.5-12.2) FL Carbon Dioxide 21.1 L (21.6-31.8) mmol/L BUN 4.9 L (9.0-27.0) mg/dL BUN/Creatinine Ratio 6.12 L (12.00-20.00) Ratio Glucose 126 H (70-110) mg/dL Calcium 8.2 L (8.7-10.3) mg/dL Assessment and Plan Assessment: 1. Right knee osteoarthritis - Postop day #1 status post right total knee arthroplasty Plan: 1. Right knee osteoarthritis - right total knee arthroplasty performed yesterday, 09/16/2023. Patient stable bedside this morning with dressing present over right hip. Patient did do well with therapy this morning. Prescription for walker was signed. Discharge home today with health services. 2. Appreciate medical management 3. Pain management - [place]; Flexeril 4. DVT prophylaxis - Xarelto in hospital. Going home with Eliquis 2.5 mg twice a day 2 weeks 5. GI prophylaxis -senna 6. PT/OT - weightbearing as tolerated with walker 7. Encourage incentive spirometer use 8. Discharge planning - home today with health services Time with Patient: Less than 30
== END 2023-09-17 13:48 | disposition home health service (06) ==
LOC: OR 05:36 → 4SSUR 09:21 → OR 09-17 13:48
PROVIDERS: ATTEND Orthopaedic Surgery
DX: M17.11 Unilateral primary osteoarthritis, right knee (principal); G89.18 Other acute postprocedural pain; M79.7 Fibromyalgia; F43.10 Post-traumatic stress disorder, unspecified; K58.9 Irritable bowel syndrome, unspecified; G47.00 Insomnia, unspecified; F41.9 Anxiety disorder, unspecified; F17.210 Nicotine dependence, cigarettes, uncomplicated; E66.9 Obesity, unspecified; Z68.31 Body mass index [BMI] 31.0-31.9, adult; Z88.0 Allergy status to penicillin; Z88.8 Allergy status to other drugs, medicaments and biological substances; Z79.899 Other long term (current) drug therapy; Z79.01 Long term (current) use of anticoagulants
CPT/HCPCS: 97161; 64999; 64448; 80048; 85025; 73560; 27447; C1713; C1776; C1751; J2250; J3370; J1100; S0106; J0690 ×2; J2405; J3010; J1170 ×3; J2795

== ENCOUNTER → 2023-11-01 | Outpatient (CLI) | payer OTHER ==
--- NOTE | 2023-11-02 14:05 | XR ---
EXAMINATION TYPE: XR knee limited RT DATE OF EXAM: 11/01/2023 1:41 PM CLINICAL INDICATION:Female, 38 years old with history of Z96.651 PRESENCE OF RIGHT ARTIFICIAL KNEE TSERING INT; [facility] COMPARISON: 09/16/2023. TECHNIQUE: XR knee limited RT; examined in Frontal, lateral and oblique projections. FINDINGS: Status post total knee arthroplasty changes with hardware in appropriate alignment and in tact. No evidence of fracture. IMPRESSION: Status post total knee arthroplasty changes with hardware intact and appropriate alignment. No fractu res identified.
--- NOTE | 2023-11-03 14:53 | P.HPOR ---
History of Present Illness H&P Date: 11/03/23 Chief Complaint: Right knee stiffness The patient is a 38-year-old female who underwent previous right total knee arthroplasty 09/16/2023 presents with persistent stiffness despite adequate postoperative rehabilitation. She has otherwise had an uncomplicated postoperative course. Review of Systems Per HPI Past Medical History Past Medical History: Fibromyalgia Additional Past Medical History / Comment(s): severe nausea,abdominal pain and cramping, hx migraines, hypoglycemia History of Any Multi-Drug Resistant Organisms: None Reported Past Surgical History: Appendectomy, Cholecystectomy, Hysterectomy, Orthopedic Surgery Additional Past Surgical History / Comment(s): right knee x2, right ankle, EGD Past Anesthesia/Blood Transfusion Reactions: No Reported Reaction Additional Past Alcohol Use History / Comment(s): started smoking at age 14,1ppd - Past Family History Father Family Medical History: No Reported History Medications and Allergies Home Medications Medication Instructions Recorded Confirmed Type HYDROcodone/APAP 7.5-325MG [[place] 1 tab PO BID PRN 04/10/21 09/11/23 History 7.5-325] Topiramate [Trokendi Xr] 100 mg PO QAM 04/10/21 09/11/23 History Propranolol HCl 80 mg PO DAILY 06/13/21 09/11/23 History Ondansetron [Zofran] 4 mg PO Q8HR PRN #30 tab 06/14/21 09/11/23 Rx Pantoprazole [Protonix] 40 mg PO QAM 09/11/23 09/11/23 History Pregabalin [Lyrica] 75 mg PO BID 09/11/23 09/11/23 History buPROPion HCL [Wellbutrin SR] 450 mg PO QAM 09/11/23 09/11/23 History traZODone HCL 300 mg PO HS 09/11/23 09/11/23 History Apixaban [Eliquis] 2.5 mg PO BID #60 tab 09/17/23 Rx Cyclobenzaprine [Flexeril] 10 mg PO BID #24 tab 09/17/23 Rx Allergies Allergy/AdvReac Type Severity Reaction Status Date / Time amoxicillin trihydrate Allergy Nausea & Verified 09/16/23 06:20 [From Augmentin] Vomiting fexofenadine HCl Allergy Nausea & Verified 09/16/23 06:20 [From Aniyah] Vomiting potassium clavulanate Allergy Nausea & Verified 09/16/23 06:20 [From Augmentin] Vomiting Physical Examination - Knee right Appearance: previous incision (Well healed) Tenderness with palpation: none ROM: extension: -10 degrees ROM: flexion: 70 degrees Results Patient is a well-developed well-nourished female approximately 5 foot 265 pounds of endomorphic habitus. HEENT exam is nonfocal, neck is supple. She has pain with passive motion right hip. Straight leg raise is negative. On examination the right knee, incisions well-healed. She has no joint line tenderness. There is no effusion. There is no warmth or erythema. Active motion is limited. Her right knee is stable to varus and valgus stress. Her distal neurovascular exam appears intact in the right lower extremity. - Diagnostic results Knee x-ray: image reviewed (X-rays the right knee are reviewed and show a total knee arthroplasty in good alignment.) Assessment and Plan Assessment: status post right total knee arthroplasty Right knee arthrofibrosis Plan: I talked to the patient at length regarding her condition and treatment options. At this point she remains quite stiff despite adequate rehabilitation. We'll plan to proceed with manipulation of the right knee under anesthesia. We will likely perform that as an outpatient procedure utilizing IV sedation. Risks and benefits were discussed at length in layman's terms.
== END | disposition home or self-care (01) ==
LOC: RADXRMAIN 13:24
PROVIDERS: ATTEND Orthopaedic Surgery
DX: Z96.651 Presence of right artificial knee joint (principal)

== ENCOUNTER 2023-11-18 08:00 | Day surgery (SDC) | payer OTHER ==
[2023-11-18] MEDS ORDERED: LACTATED RINGERS 1,000 ML BAG ONE (08:40)
[2023-11-18] MEDS ORDERED: DEXAMETHASONE SOD PHOSPHATE 4 MG/ML 1 ML VIAL ONE (08:41)
[2023-11-18] MEDS ORDERED: ONDANSETRON 4 MG/2 ML VIAL ONE (08:41)
[2023-11-18] MEDS ORDERED: KETOROLAC 15 MG/ML 1 ML VIAL ONE (08:55)
[2023-11-18] MEDS ORDERED: LIDOCAINE 1% INJ 10MG/ML (20 ML MDV) ONE (09:24)
[2023-11-18] MEDS ORDERED: PROPOFOL 10 MG/ML 20 ML VIAL IV ONE (09:24)
[2023-11-18] MEDS ORDERED: fentaNYL (PF) 50 MCG/ML 2 ML AMP ONE (09:24)
[2023-11-18] MEDS ORDERED: HYDROcodone/APAP 5-325MG 1 EACH TAB ONE (10:32)
--- NOTE | 2024-01-09 15:02 | P.OP ---
Date of Procedure: 11/18/23 Preoperative Diagnosis: Right knee arthrofibrosis Postoperative Diagnosis: Same Procedure(s) Performed: Manipulation under anesthesia right knee Anesthesia: MAC Surgeon: Gerry Davila Estimated Blood Loss (ml): 0 Pathology: none sent Condition: stable Disposition: PACU Indications for Procedure: The patient is a 38-year-old female who underwent right total knee arthroplasty 09/16/2023 presents with persistent stiffness despite adequate postoperative rehabilitation. A discussion of the risks and benefits of manipulation under anesthesia was made with the patient and she opted to proceed. Risks of the procedure to include fracture, tendon rupture, possible recurrence of stiffness and need for subsequent procedures was discussed. Informed consent was obtained. Operative Findings: As below Description of Procedure: The patient was brought to the recovery room, and after induction of IV sedation the right knee was then gently manipulated. First I obtained full flexion to about 120. Moderate adhesions were encountered. I then obtained full extension. Again there were moderate adhesions encountered. The patient was then monitored until fully awake. There was no blood loss. No complications were incurred.
== END 2023-11-18 11:10 ==
LOC: OR 08:00
PROVIDERS: ATTEND Orthopaedic Surgery
DX: M24.661 Ankylosis, right knee
CPT/HCPCS: 27570

== ENCOUNTER → 2023-12-16 | Outpatient (CLI) | payer OTHER ==
--- NOTE | 2023-12-16 13:37 | US ---
EXAMINATION TYPE: US venous doppler duplex LE RT DATE OF EXAM: 12/16/2023 1:14 PM COMPARISON: US 09/15/2020 CLINICAL INDICATION: Female, 38 years old with history of M79.661 PAIN IN RIGHT LOWER LEG R22.41; No hx of DVT. Patient does not take blood thinners. Pain and swelling in right leg since knee replacemen t in September. Pain has gotten worse x 1 week. SIDE PERFORMED: Right TECHNIQUE: The lower extremity deep venous system is examined utilizing real time linear array sonog claudio with graded compression, doppler sonography and color-flow sonography. VESSELS IMAGED: Common Femoral Vein Deep Femoral Vein Greater Saphenous Vein * Femoral Vein Popliteal Vein Small Saphenous Vein * Proximal Calf Veins Posterior tibial veins Peroneal veins (* superficial vessels) Right Leg: No evidence of DVT. Duplicate mid femoral vein seen. IMPRESSION: No evidence for DVT within the right lower extremity.
== END | disposition home or self-care (01) ==
LOC: RADUSWWP 12:54
PROVIDERS: ATTEND Orthopaedic Surgery
DX: M79.661 Pain in right lower leg (principal); R22.41 Localized swelling, mass and lump, right lower limb

== ENCOUNTER → 2024-03-10 | Outpatient (CLI) | payer OTHER | END | disposition home or self-care (01) | LOC: LABWHC1 08:59 | PROVIDERS: ATTEND Psychiatry & Neurology Neurology | DX: Z53.9 Procedure and treatment not carried out, unspecified reason (principal) ==